=== PATIENT | female | born 1935 | race Two or more races ===

== ENCOUNTER 2017-12-09 06:50 | Day surgery (SDC) | payer OTHER ==
[2017-12-09 08:29] VITALS: BMI 29.1
[2017-12-09 12:53] VITALS: BP 131/74; PULSE 80; TEMP 98.2
== END 2017-12-09 12:55 | disposition home or self-care (01) ==
LOC: FASU 06:50
PROVIDERS: ATTEND Orthopaedic Surgery
PROC: 0LQ14ZZ Repair Right Shoulder Tendon, Percutaneous Endoscopic Approach (ICD-10-PCS; principal; 2017-12-09)
PROC: 0RNJ4ZZ Release Right Shoulder Joint, Percutaneous Endoscopic Approach (ICD-10-PCS; 2017-12-09)
PROC: 0PB94ZZ Excision of Right Clavicle, Percutaneous Endoscopic Approach (ICD-10-PCS; 2017-12-09)
PROC: 0RBJ4ZZ Excision of Right Shoulder Joint, Percutaneous Endoscopic Approach (ICD-10-PCS; 2017-12-09)
PROC: 0RNJ4ZZ Release Right Shoulder Joint, Percutaneous Endoscopic Approach (ICD-10-PCS; 2017-12-09)
DX: M75.101 Unspecified rotator cuff tear or rupture of right shoulder, not specified as traumatic (principal); M75.02 Adhesive capsulitis of left shoulder; M25.811 Other specified joint disorders, right shoulder; M75.41 Impingement syndrome of right shoulder; M19.011 Primary osteoarthritis, right shoulder; M65.811 Other synovitis and tenosynovitis, right shoulder
CPT/HCPCS: 88304-TC; 94760

== ENCOUNTER 2018-01-02 13:58 | Emergency (ER) | payer OTHER ==
[2018-01-02 14:25] VITALS: BP 146/85; PULSE 97; TEMP 98.3; BMI 31.2
--- NOTE | 2018-01-02 16:25 | PDOC ---
History of Present Illness - General Chief Complaint: Abrasion Stated Complaint: INJURY Time Seen by Provider: 01/02/18 15:42 History Source: Patient, Family (Daughter) Exam Limitations: No Limitations - History of Present Illness Initial Comments: 01/02/18 16:20 This is an 82-year-old woman with past medical history of hypertension, hyperlipidemia, arthritis and recent right rotator cuff repair who presents emergency Department with abrasion to left white status post trip and fall over steel steps at shop right. Patient states she caught her skin on the corner of the steel stairs which peeled back the top layer of her dermis. She applied a the adhesive bandage to the area prior to coming in and bleeding is now currently controlled. She reports she had a tetanus shot mutely prior to her surgery 2 months ago. Past History - Past Medical History Allergies/Adverse Reactions: Allergies Allergy/AdvReac Type Severity Reaction Status Date / Time shellfish derived Allergy Verified 01/02/18 14:21 contrast dye Allergy Uncoded 01/02/18 14:21 Home Medications: Ambulatory Orders Olmesartan Medoxomil [Benicar -] 40 mg PO DAILY 05/11/15 Amitriptyline HCl [Elavil -] 10 mg PO HS 12/07/17 Aspirin [ASA -] 81 mg PO DAILY 12/07/17 Gabapentin 300 mg PO BID 12/07/17 Hydrocodone/Acetaminophen [Hydrocodone-Acetamin 5-325 mg] 1 each PO ASDIR PRN Lansoprazole [Prevacid -] 15 mg PO DAILY 12/07/17 Hydrocodone/Acetaminophen [[place] 5-325 Tablet] 1 each PO Q6H PRN #28 tablet MDD 8 12/09/17 Anemia: No Asthma: No Cancer: Yes (basal cell of face) Cardiac Disorders: No CVA: No COPD: No CHF: No Dementia: No Diabetes: No GI Disorders: No Disorders: No HTN: Yes Hypercholesterolemia: Yes Liver Disease: No Seizures: No Thyroid Disease: No - Surgical History Abdominal Surgery: No Appendectomy: No Cardiac Surgery: No Cholecystectomy: Yes Lung Surgery: No Neurologic Surgery: No Orthopedic Surgery: Yes (Knee Replacement) - Suicide/Smoking/Psychosocial Hx Smoking Status: No Smoking History: Never smoked Have you smoked in the past 12 months: No Number of Cigarettes Smoked Daily: 0 Hx Alcohol Use: No Drug/Substance Use Hx: No Substance Use Type: None Hx Substance Use Treatment: No Review of Systems - Review of Systems Able to Perform ROS?: Yes Is the patient limited Citizen [place] proficient: No Constitutional: No: Symptoms Reported HEENTM: No: Symptoms Reported Respiratory: No: Symptoms reported Cardiac (ROS): No: Symptoms Reported ABD/GI: No: Symptoms Reported : No: Symptoms Reported Musculoskeletal: No: Symptoms Reported Integumentary: Yes: See HPI Neurological: No: Symptoms reported Endocrine: No: Symptoms Reported Hematologic/Lymphatic: No: Symptoms Reported *Physical Exam - Vital Signs Last Vital Signs Temp Pulse Resp BP Pulse Ox 98.3 F 97 H 19 146/85 97 01/02/18 14:21 01/02/18 14:21 01/02/18 14:21 01/02/18 14:21 01/02/18 14:21 - Physical Exam General Appearance: Yes: Appropriately Dressed. No: Apparent Distress Respiratory/Chest: positive: Lungs Clear, Normal Breath Sounds. negative: Respiratory Distress, Accessory Muscle Use Cardiovascular: positive: Regular Rhythm, Regular Rate. negative: Edema, Murmur Integumentary: positive: Normal Color, Dry, Warm, Other (Abrasion to the left anterolateral white) Neurologic: positive: Alert, Normal Response Medical Decision Making - Medical Decision Making 01/02/18 16:22 A/P: 82-year-old woman past medical history of hypertension, hyperlipidemia, arthritis and recent right rotator cuff repair who sustained abrasion to her white status post trip and fall Abrasion noted to left anterior lateral white No bony tenderness to white, ankle or knee 2+ DP pulses bilaterally Cranial nerves II through XII grossly intact Tetanus shot is up-to-date I'll discharge the patient home with wound care instructions. *DC/Admit/Observation/Transfer Diagnosis at time of Disposition: Abrasion - Discharge Dispostion Disposition: HOME Condition at time of disposition: Stable Admit: No - Referrals Referrals: Patricia Simeon MD [Primary Care Provider] - - Patient Instructions Additional Instructions: Continue apply adhesive bandages to wound until scab forms. Return to emergency department for any concerns. - Post Discharge Activity
== END 2018-01-02 16:29 | disposition home or self-care (01) ==
LOC: JERFT 13:58
DX: S80.812A Abrasion, left lower leg, initial encounter (principal); W10.8XXA Fall (on) (from) other stairs and steps, initial encounter; Y93.89 Activity, other specified; Y92.512 Supermarket, store or market as the place of occurrence of the external cause; Y99.8 Other external cause status; I10 Essential (primary) hypertension; E78.5 Hyperlipidemia, unspecified; M12.9 Arthropathy, unspecified; Z79.82 Long term (current) use of aspirin; Z85.828 Personal history of other malignant neoplasm of skin
CPT/HCPCS: 99281-25

== ENCOUNTER 2018-08-15 09:14 | Emergency (ER) | payer OTHER ==
[2018-08-15 09:38] VITALS: BMI 32.5
--- NOTE | 2018-08-15 09:39 | PDOC ---
History of Present Illness - General Chief Complaint: Pain, Acute Stated Complaint: PAIN, Time Seen by Provider: 08/15/18 09:38 - History of Present Illness Initial Comments: 82yo F with history of HTN, HLD, chronic back pain, postherpetic neuralgia presenting with RLE rash x 1 week and R-sided pain x 1 month. Patient saw her primary care physician, Dr. Simeon, one month ago for her side pain and was prescribed naprosyn. Patient says she feels minimal relief with this medicine. She did not take anything today for her pain. Patients rash is present on her right lower leg. About one year ago, patient sustained an abrasion which was slow to heal. She noticed in the past week that the area become red and painful. The area also bled from excoriation, but patient denies drainage of pus. Patient reports urinary frequency, but no dysuria or hematuria. She denies fevers, but endorses chills. No chest pain, shortness of breath, or abdominal pain. Past History - Past Medical History Allergies/Adverse Reactions: Allergies Allergy/AdvReac Type Severity Reaction Status Date / Time shellfish derived Allergy Verified 01/02/18 14:21 contrast dye Allergy Uncoded 01/02/18 14:21 Home Medications: Ambulatory Orders Olmesartan Medoxomil [Benicar -] 40 mg PO DAILY 05/11/15 Amitriptyline HCl [Elavil -] 10 mg PO HS 12/07/17 Aspirin [ASA -] 81 mg PO DAILY 12/07/17 Gabapentin 300 mg PO BID 12/07/17 Hydrocodone/Acetaminophen [Hydrocodone-Acetamin 5-325 mg] 1 each PO ASDIR PRN Lansoprazole [Prevacid -] 15 mg PO DAILY 12/07/17 Hydrocodone/Acetaminophen [[place] 5-325 Tablet] 1 each PO Q6H PRN #28 tablet MDD 8 12/09/17 Sulfamethoxazole/Trimethoprim [Bactrim Ds Tablet] 1 each PO BID #14 tablet 08/15 Anemia: No Asthma: No Cancer: Yes (basal cell of face) Cardiac Disorders: No CVA: No COPD: No CHF: No Dementia: No Diabetes: No GI Disorders: No Disorders: No HTN: Yes Hypercholesterolemia: Yes Liver Disease: No Seizures: No Thyroid Disease: No - Surgical History Abdominal Surgery: No Appendectomy: No Cardiac Surgery: No Cholecystectomy: Yes Lung Surgery: No Neurologic Surgery: No Orthopedic Surgery: Yes (Knee Replacement) - Suicide/Smoking/Psychosocial Hx Smoking Status: No Smoking History: Never smoked Have you smoked in the past 12 months: No Number of Cigarettes Smoked Daily: 0 Hx Alcohol Use: No Drug/Substance Use Hx: No Substance Use Type: None Hx Substance Use Treatment: No Review of Systems - Review of Systems Comments:: Constitutional: no fever, +chills Cardiovascular: no chest pain, no palpitations Respiratory: no cough, no shortness of breath Gastrointestinal: no abdominal pain, no nausea, no vomiting Genitourinary: no dysuria, +frequency Musculoskeletal: +side pain Skin: +rash, +itching Neurologic: no headache, no dizziness *Physical Exam - Vital Signs Last Vital Signs Temp Pulse Resp BP Pulse Ox 98.6 F 96 H 16 181/92 H 96 08/15/18 09:15 08/15/18 09:15 08/15/18 09:15 08/15/18 09:15 08/15/18 09:15 - Physical Exam Comments: General: Awake, alert, and fully oriented, in no acute distress Head: No signs of trauma Eyes: EOMI, sclera anicteric ENT: Moist mucus membranes Neck: Normal ROM, supple Lungs: Lungs clear, Normal breath sounds Cardio: Regular rhythm, S1 and S2 present Abdomen: Soft, nontender. No guarding, no rebound, no masses Extremities: Normal range of motion, Distal pulses present MSK: Tender to palpation overlying lateral aspect of rib 9 SKIN: Rash present on anterolateral aspect of RLE, measuring 3x3cm with 1cm central circular scab; no bleeding, discharge, or fluctuance Neurologic: Cranial nerves II through XII grossly intact. Normal speech Moderate Sedation - Procedure Monitoring Vital Signs: Procedure Monitoring Vital Signs Temperature 98.6 F 08/15/18 09:15 Pulse Rate 96 H 08/15/18 09:15 Respiratory Rate 16 08/15/18 09:15 Blood Pressure 181/92 H 08/15/18 09:15 O2 Sat by Pulse Oximetry (%) 96 08/15/18 09:15 ED Treatment Course - LABORATORY CBC & Chemistry Diagram: 08/15/18 10:29 08/15/18 12:23 Medical Decision Making - Medical Decision Making Patient not in bed. Belongings at bedside 08/15/18 09:45 82yo F with history of HTN, HLD, chronic back pain, postherpetic neuralgia presenting with RLE rash x 1 week and R-sided pain x 1 month. DDX includes but not limited to hematoma, cellulitis, adverse reaction to medicine, herpes zoster, MSK, rib fracture -Labs: no anemia or leukocytosis; UA with 2+ LE and 10 WBC -Bactrim given to treat for urine infection and possible early infection of RLE -Imaging: no acute pathology on CXR -Pain somewhat alleviated with 1g Ofirmev and lidocaine patch -Patient discharged with prescription for bactrim sent to pharmacy 08/15/18 10:21 *DC/Admit/Observation/Transfer Diagnosis at time of Disposition: Rib pain on right side, Urinary tract infection - Discharge Dispostion Disposition: HOME Condition at time of disposition: Stable - Prescriptions Prescriptions: Sulfamethoxazole/Trimethoprim [Bactrim Ds Tablet] 1 each PO BID #14 tablet - Referrals Referrals: Patricia Simeon MD [Primary Care Provider] - - Patient Instructions Additional Instructions: You came into the ED for rash and pain on your side. You have a urinary infection. Prescription was sent to your pharmacy to treat the rash and urine infection: Bactrim: 1 tablet twice a day for seven days You can take [id number] tylenol for the pain on your right side. You can also use [id number] lidocaine patches. Follow the instructions on the medication packaging. Follow-up with your primary care doctor this week to discuss this ED visit and to further evaluate your rash and side pain. RETURN to the ED if you experience: redness or hardness around the wound, pain or tenderness, a red streak, yellow or green discharge oozing from the wound, fever or chills, chest pain, or shortness of breath. If you think you are having an emergency, call for emergency medical services or present to the emergency department right away. ==== Entraste en el servicio de urgencias por erupcin y dolor en tu lado. Tiene layo infeccin urinaria. La receta se envi a bran farmacia para tratar la erupcin y la infeccin de orina: Bactrim: 1 tableta dos veces al da val siete roman Puede kenyon tylenol de venta latasha para el dolor en el lado derecho. Tambin puede usar parches de lidocana de venta latasha. Siga las instrucciones en el envase del medicamento. Dusty un seguimiento con bran mdico de atencin primaria esta semana para hablar sobre esta visita a la valeriano de urgencias y para evaluar ms a fondo bran erupcin y dolor en el costado. REGRESE al servicio de urgencias si experimenta: enrojecimiento o dureza alrededor de la herida, dolor o sensibilidad, alyo racha yunior, secrecin amarilla o shaan que sale de la herida, fiebre o escalofros, dolor en el pecho o falta de aire. Si sina que tiene layo emergencia, llame para solicitar servicios mdicos de emergencia o presente al departamento de emergencias de inmediato. - Post Discharge Activity
[2018-08-15] MEDS ORDERED: ACETAMINOPHEN 1000 MG/100 ML VIAL (NON FORMULARY) IVPB ONE (10:20)
[2018-08-15] MEDS ORDERED: ACETAMINOPHEN INJECTION 100 ML IVPB ONE (10:24)
--- NOTE | 2018-08-15 10:36 | PDOC ---
Attending Attestation - Resident Resident Name: Rich Blackwellth - ED Attending Attestation I have performed the following: I have examined & evaluated the patient, The case was reviewed & discussed with the resident, I agree w/resident's findings & plan, Exceptions are as noted - HPI HPI: 08/15/18 10:30 82-year-old female history of hypertension here today complaining of 1 month of right-sided lower rib upper flank pain. Patient states pain is worse with standing and sitting denies any shortness of breath no cough no fevers chills denies any urinary complaints except states that she is urinating more frequently no trauma no history of falls she is also complaining of a left lower leg reddened area and sore as well as pain. Patient states she had a skin wound there one year ago from an abrasion recently she was scratching the area because it was itching suddenly got some underlying redness did get an open sore and recently has been having pain in the area again no fevers no chills no swelling has been applying topical bacitracin twice daily she has had this wound in the left lower calf for 1 week - Physicial Exam PE: 08/15/18 10:36 Awake alert no acute distress lungs are clear bilaterally heart is regular without any murmurs rubs or gallops abdomen soft nontender skin is warm and dry left lateral calf has a small circular scabbed over but half a centimeter by half a centimeter. There is underlying purpura or small hematoma no fluctuance no urinary erythema otherwise minimal warmth distally the patient has 2+ DP PT pulses the right lateral ribs are focally tender to palpation no crepitus no step-off no flank or CVA tenderness - Medical Decision Making 08/15/18 10:37 Differential diagnosis includes muscle skeletal strain of the right thoracic muscles chest wall pain, underlying rib fracture, infection such as pneumonia or effusion . For the left leg the patient has concerns for possible early infection will continue bacitracin and possible oral antibiotic in addition we' ll check renal function to rule out any renal cause of her pain in addition to LFTs and a CBC UA to rule out pyelonephritis or UTI chest x-ray to rule out pneumonia 08/15/18 13:59 pt with mild positive ua, will treat with bactrim for both skin infection and uti. labs noted hypoglycemia and low calciu, finger stick in 80's will repeat chemistry. repeat chem with normal calcium and glucose ziggy lab error. dc home.
[2018-08-15 10:37] LABS: BASO % 0.7 % (0-2.0); EOS % 2.6 % (0-4.5); HEMATOCRIT 36.8 % (32.4-45.2); HEMOGLOBIN 12.7 GM/dL (10.7-15.3); LYMPH % 19.5 % (8-40); MCH 31.8 pg (25.7-33.7); MCHC 34.5 g/dl (32.0-36.0); MEAN CELL VOLUME 92.1 fl (80-96); MEAN PLT VOLUME 8.5 fl (7.5-11.1); MONO % 7.4 % (3.8-10.2); NEUT % 69.8 % (42.8-82.8); PLATELET COUNT 172 K/MM3 (134-434); RBC 3.99 M/mm3 (3.60-5.2); WHITE BLOOD COUNT 5.9 K/mm3 (4.0-10.0)
[2018-08-15 10:38] LABS: URINE APPEARANCE CLEAR; URINE BILIRUBIN NEGATIVE (<2.0 mg/dL); URINE COLOR LTYELLOW; URINE GLUCOSE (UA) NEGATIVE (NEGATIVE); URINE KETONE NEGATIVE (NEGATIVE); URINE LEUK ESTERASE 2+ (NEGATIVE); URINE NITRITE NEGATIVE (NEGATIVE); URINE PROTEIN NEGATIVE (NEGATIVE); URINE UROBILINOGEN NEGATIVE mg/dL (0.2-1.0)
[2018-08-15 10:43] LABS: URINE BACTERIA RARE /hpf (NONE SEEN); URINE HYALINE CAST 1 /lpf; URINE MUCUS RARE
[2018-08-15 11:36] LABS: ALBUMIN 3.3 g/dl (3.4-5.0); ALK PHOS 52 U/L (45-117); ANION GAP 18 MMOL/L (8-16); BILIRUBIN,TOTAL 0.6 mg/dL (0.2-1); BLOOD UREA NITROGEN 27 mg/dL (7-18); CHLORIDE 110 mmol/L (98-107); CO2 15 mmol/L (21-32); CREATININE 0.6 mg/dL (0.55-1.3); SGOT/AST 43 U/L (15-37); SGPT/ALT 29 U/L (13-61); SODIUM 142 mmol/L (136-145); TOT PROT 6.4 g/dl (6.4-8.2)
[2018-08-15] MEDS ORDERED: VALSARTAN 40 MG TABLET (FP) PO ONE (11:53)
[2018-08-15 11:56] LABS: CALCIUM < 5.1 mg/dL (8.5-10.1); GLUCOSE,RANDOM 34 mg/dL (74-106)
[2018-08-15] MEDS ORDERED: VALSARTAN 80 MG TABLET (UD) ONE (12:01)
[2018-08-15] MEDS ORDERED: HEMOQUE TEST 1 EACH EACH ONE (12:09)
[2018-08-15] MEDS ORDERED: SULFAMETHOXAZOLE/TRIMETHOPRIM 800MG/160MG D.S. TABLET PO ONE (12:09)
[2018-08-15 12:49] LABS: ANION GAP 4 MMOL/L (8-16); BLOOD UREA NITROGEN 25 mg/dL (7-18); CALCIUM 8.2 mg/dL (8.5-10.1); CHLORIDE 108 mmol/L (98-107); CO2 29 mmol/L (21-32); CREATININE 0.6 mg/dL (0.55-1.3); GLUCOSE,RANDOM 89 mg/dL (74-106); POTASSIUM 3.7 mmol/L (3.5-5.1); SODIUM 141 mmol/L (136-145)
[2018-08-15] MEDS ORDERED: LIDOCAINE 5% TOPICAL PATCH TP ONE (13:08)
[2018-08-15] MEDS ORDERED: LIDOCAINE 5% TOPICAL PATCH ONE (13:13)
[2018-08-15 13:59] VITALS: BP 120/79; PULSE 79; TEMP 98.5
[2018-08-15] MEDS ORDERED: LIDOCAINE PATCH REMOVAL MC SCH (22:00)
== END 2018-08-15 14:30 | disposition home or self-care (01) ==
LOC: JER 09:14
PROC: 3E033NZ Introduction of Analgesics, Hypnotics, Sedatives into Peripheral Vein, Percutaneous Approach (ICD-10-PCS; principal; 2018-08-15)
DX: R07.81 Pleurodynia (principal); N39.0 Urinary tract infection, site not specified; I10 Essential (primary) hypertension; E78.5 Hyperlipidemia, unspecified; G89.29 Other chronic pain; B02.29 Other postherpetic nervous system involvement
CPT/HCPCS: 36415; 71046-TC-FY; 80048; 80053; 81003; 81015; 82962; 85025; 87086; 99283-25; J0131

== ENCOUNTER 2019-01-15 09:16 | Emergency (ER) | payer OTHER ==
[2019-01-15 09:33] VITALS: BP 166/70; PULSE 90; TEMP 98.3; BMI 32.2
--- NOTE | 2019-01-15 10:13 | PDOC ---
History of Present Illness - History of Present Illness Occurred: reports: other Lower Extremity Pain Location: bilateral: leg <AlmaKenneth - Last Filed: 01/15/19 14:38> <Martha Bailon - Last Filed: 01/16/19 15:00> - General Chief Complaint: Pain Stated Complaint: RT LEG PAIN/SWOLLEN Time Seen by Provider: 01/15/19 10:08 Past History - Past Medical History Anemia: No Asthma: No Cancer: Yes (basal cell of face) Cardiac Disorders: No CVA: No COPD: No CHF: No Dementia: No Diabetes: No GI Disorders: No Disorders: No HTN: Yes Hypercholesterolemia: Yes Liver Disease: No Seizures: No Thyroid Disease: No - Surgical History Abdominal Surgery: No Appendectomy: No Cardiac Surgery: No Cholecystectomy: Yes Lung Surgery: No Neurologic Surgery: No Orthopedic Surgery: Yes (Knee Replacement) - Suicide/Smoking/Psychosocial Hx Smoking Status: No Smoking History: Never smoked Have you smoked in the past 12 months: No Number of Cigarettes Smoked Daily: 0 Hx Alcohol Use: No Drug/Substance Use Hx: No Substance Use Type: None Hx Substance Use Treatment: No <[place]apeakeKenneth - Last Filed: 01/15/19 14:38> <Martha Bailon - Last Filed: 01/16/19 15:00> - Past Medical History Allergies/Adverse Reactions: Allergies Allergy/AdvReac Type Severity Reaction Status Date / Time shellfish derived Allergy Verified 01/15/19 09:27 contrast dye Allergy Uncoded 01/15/19 09:27 Home Medications: Ambulatory Orders Aspirin Coated [Ecotrin -] 81 mg PO DAILY 01/15/19 Losartan Potassium [Cozaar] 100 mg PO DAILY 01/15/19 Rosuvastatin Calcium [Crestor] 10 mg PO HS 01/15/19 Review of Systems - Review of Systems Constitutional: No: Chills, Fever Respiratory: No: Shortness of Breath Cardiac (ROS): No: Chest Pain, Palpitations <Kenneth Marquez - Last Filed: 01/15/19 14:38> *Physical Exam - Vital Signs Last Vital Signs Temp Pulse Resp BP Pulse Ox 98.3 F 90 20 166/70 95 01/15/19 09:31 01/15/19 09:31 01/15/19 09:31 01/15/19 09:31 01/15/19 09:31 - Physical Exam General Appearance: Yes: Appropriately Dressed. No: Apparent Distress Neck: positive: Supple Respiratory/Chest: positive: Lungs Clear, Normal Breath Sounds. negative: Respiratory Distress Cardiovascular: positive: Regular Rate, S1, S2 Musculoskeletal: positive: Other (hyperpigmented white to b/l LE w/ no sig swelling, no erythema, pedal pulses intact) Integumentary: positive: Dry, Warm Neurologic: positive: Fully Oriented, Alert, Normal Mood/Affect <Kenneth Marquez - Last Filed: 01/15/19 14:38> - Vital Signs Last Vital Signs Temp Pulse Resp BP Pulse Ox 98.3 F 90 20 166/70 95 01/15/19 09:31 01/15/19 09:31 01/15/19 09:31 01/15/19 09:31 01/15/19 09:31 <Martha Bailon - Last Filed: 01/16/19 15:00> ED Treatment Course - LABORATORY CBC & Chemistry Diagram: 01/15/19 10:45 01/15/19 10:45 <Kenneth Marquez - Last Filed: 01/15/19 14:38> - LABORATORY CBC & Chemistry Diagram: 01/15/19 10:45 01/15/19 10:45 <Martha Bailon - Last Filed: 01/16/19 15:00> Medical Decision Making - Medical Decision Making 01/15/19 10:54 83 yo F, h/o HTN, HLD, here w/ b/l LE pain and swelling x 1 week. Has had same before but worse this time. No f/c, SOB, CP or palpitations See exam B/l LE pain/swelling Recurrent Exam only remarkable for e/o venous stasis b/l Of note US in 2015 demonstrated significant reflux to b/l GSV and SSV per records -labs/US -anticipate dc w/ PMD and vasc f/u 01/15/19 14:24 Labs unremarkable, US neg for DVT. Dc w/ PMD and vascular f/u <Kenneth Marquez - Last Filed: 01/15/19 14:38> - Medical Decision Making The patient was seen and evaluated in conjunction with midlevel provider under my direct supervision, ancillary studies were reviewed. I agree with the plan as outlined OLESYA Marquez. HPI, workup/dispo as outlined. VS reviewed, wnl. 01/15/19 11:00 <Martha Bailon - Last Filed: 01/16/19 15:00> *DC/Admit/Observation/Transfer <Kenneth Marquez - Last Filed: 01/15/19 14:38> <Martha Bailon - Last Filed: 01/16/19 15:00> Diagnosis at time of Disposition: Leg pain, bilateral - Discharge Dispostion Disposition: HOME Condition at time of disposition: Good - Referrals Referrals: Gisela Schulte MD [Primary Care Provider] - Amarjit Laurent DO [Staff Physician] - - Patient Instructions Printed Discharge Instructions: Chronic Venous Insufficiency Additional Instructions: Tu trabajo de laboratorio y la ecografa fueron normales hoy. La causa de sandeep sntomas pueden ser venas defectuosas. Por favor calos un seguimiento con bran PMD y tambin con el Dr. Laurent de vascular cuyo nmero se incluye en allan documento de jeannie Print Language: ICELANDIC
[2019-01-15 11:13] LABS: BASO % 0.8 % (0-2.0); EOS % 3.3 % (0-4.5); HEMATOCRIT 40.4 % (32.4-45.2); HEMOGLOBIN 13.1 GM/dL (10.7-15.3); LYMPH % 26.4 % (8-40); MCH 30.3 pg (25.7-33.7); MCHC 32.5 g/dl (32.0-36.0); MEAN CELL VOLUME 93.1 fl (80-96); MEAN PLT VOLUME 7.9 fl (7.5-11.1); MONO % 6.3 % (3.8-10.2); NEUT % 63.2 % (42.8-82.8); PLATELET COUNT 200 K/MM3 (134-434); RBC 4.34 M/mm3 (3.60-5.2); RDW 14.8 % (11.6-15.6); WHITE BLOOD COUNT 4.7 K/mm3 (4.0-10.0)
[2019-01-15 11:23] LABS: ALBUMIN 3.7 g/dl (3.4-5.0); BILIRUBIN,TOTAL 0.4 mg/dL (0.2-1); CALCIUM 8.5 mg/dL (8.5-10.1); CREATININE 0.6 mg/dL (0.55-1.3); TOT PROT 6.6 g/dl (6.4-8.2)
[2019-01-15 11:25] LABS: EPI CELLS 4.3 /HPF (0-5/HPF); PH,URINE 5.5 (5.0-8.0); URINE APPEARANCE CLEAR; URINE BACTERIA 26.2 /hpf (NEGATIVE); URINE BILIRUBIN NEGATIVE (NEGATIVE); URINE CASTS 4 /lpf (0-8); URINE COLOR YELLOW; URINE GLUCOSE (UA) NEGATIVE (NEGATIVE); URINE KETONE NEGATIVE (NEGATIVE); URINE LEUK ESTERASE 1+ (NEGATIVE); URINE NITRITE NEGATIVE (NEGATIVE); URINE PROTEIN NEGATIVE (NEGATIVE); URINE RBC 3 /hpf (0-4); URINE UROBILINOGEN 0.2 mg/dL (0.2-1.0); URINE WBC 9 /hpf (0-5)
== END 2019-01-15 14:00 | disposition home or self-care (01) ==
LOC: JER 09:16
DX: I87.8 Other specified disorders of veins (principal); I87.2 Venous insufficiency (chronic) (peripheral); I10 Essential (primary) hypertension; E78.00 Pure hypercholesterolemia, unspecified; Z85.828 Personal history of other malignant neoplasm of skin
CPT/HCPCS: 36415; 80053; 81003; 85025; 93970-TC; 99282-25

== ENCOUNTER 2019-01-31 10:13 | Emergency (ER) | payer OTHER | END 2019-01-31 15:04 | disposition home or self-care (01) | LOC: JER 10:13 ==

== ENCOUNTER 2019-02-05 09:20 | Emergency (ER) | payer OTHER | END 2019-02-05 12:44 | disposition home or self-care (01) | LOC: JERFT 09:20 ==

== ENCOUNTER 2019-10-23 15:59 | Emergency (ER) | payer OTHER ==
[2019-10-23 16:16] VITALS: BMI 34.2
--- NOTE | 2019-10-23 16:17 | PDOC ---
Rapid Medical Evaluation Time Seen by Provider: 10/23/19 16:13 Medical Evaluation: Allergies Allergy/AdvReac Type Severity Reaction Status Date / Time shellfish derived Allergy Verified 02/05/19 09:25 contrast dye Allergy Uncoded 02/05/19 09:25 10/23/19 16:14 Pt c/o: high BP at dr office, on losartan and no dose adjustment recently, mild chest tightness Pt on brief exam: bp 177/100, lcta, 103 pt ordered for: cardiac w/u pt to proceed to the ED Discharge Disposition - Diagnosis High blood pressure, Chest pain - Referrals - Patient Instructions - Post Discharge Activity
[2019-10-23 16:48] LABS: BASO % 0.8 % (0-2.0); EOS % 2.6 % (0-4.5); HEMATOCRIT 39.7 % (32.4-45.2); HEMOGLOBIN 13.1 GM/dL (10.7-15.3); LYMPH % 25.4 % (8-40); MCH 30.5 pg (25.7-33.7); MCHC 32.9 g/dl (32.0-36.0); MEAN CELL VOLUME 92.8 fl (80-96); NEUT % 64.2 % (42.8-82.8); PLATELET COUNT 179 K/MM3 (134-434); RBC 4.28 M/mm3 (3.60-5.2); RDW 15.8 % (11.6-15.6); WHITE BLOOD COUNT 6.3 K/mm3 (4.0-10.0)
[2019-10-23 16:53] LABS: EPI CELLS 5.3 /HPF (0-5/HPF); HYALINE CASTS 2 /lpf (0-8); PH,URINE 6.5 (5.0-8.0); URINE APPEARANCE CLEAR; URINE BACTERIA 6.7 /hpf (NEGATIVE); URINE BILIRUBIN NEGATIVE (NEGATIVE); URINE COLOR YELLOW; URINE GLUCOSE (UA) NEGATIVE (NEGATIVE); URINE KETONE NEGATIVE (NEGATIVE); URINE LEUK ESTERASE NEGATIVE (NEGATIVE); URINE NITRITE NEGATIVE (NEGATIVE); URINE PROTEIN 3+ (NEGATIVE); URINE RBC 3 /hpf (0-4); URINE UROBILINOGEN 0.2 mg/dL (0.2-1.0); URINE WBC 4 /hpf (0-5)
--- NOTE | 2019-10-23 16:59 | PDOC ---
History of Present Illness - General Chief Complaint: Blood Pressure Problem Stated Complaint: HIGH BLOOD PRESSURE Time Seen by Provider: 10/23/19 16:13 History Source: Patient Exam Limitations: No Limitations - History of Present Illness Initial Comments: 10/23/19 16:55 Pt is an 83 y/o female who presents to the ED with complaint of palpitations that she had last night. The patient did not make her family member aware of her palpitations and she states they only lasted a short time. Today, the patient went to have blood drawn and was told that her cheeks were red and she had palpitations again for a short period of time. The patient's family member brought her to the ED for evaluation. The patient states that she feels normal now. She denies any cp, sob, visual changes, palpitations, jaw pain or back pain. She has a history of HTN, HLD, osteoporosis, arthritis. She denies any complaints at this time. Past History - Past Medical History Allergies/Adverse Reactions: Allergies Allergy/AdvReac Type Severity Reaction Status Date / Time shellfish derived Allergy Verified 10/23/19 16:17 contrast dye Allergy Uncoded 10/23/19 16:17 Home Medications: Ambulatory Orders Diclofenac Sodium [Voltaren] 2 gm TP TID PRN #3 tube 05/01/19 Aspirin Coated [Ecotrin -] 81 mg PO DAILY #30 tablet.ec 07/19/19 Losartan Potassium [Cozaar] 100 mg PO DAILY #14 tablet 07/19/19 Rosuvastatin Calcium [Crestor] 10 mg PO HS #14 tablet 07/19/19 Amitriptyline HCl 25 mg PO HS #30 tablet 09/19/19 Ergocalciferol (Vitamin D2) [Vitamin D2] 50,000 unit PO Q7D #4 capsule 09/19/19 Ciclopirox Olamine [Ciclopirox] 15 gm TP DAILY 10/23/19 Denosumab [Prolia] 60 mg SQ DAILY 10/23/19 Diclofenac Sodium [Voltaren] 100 gm TP PRN PRN 10/23/19 Duloxetine HCl 30 mg PO DAILY 10/23/19 Meloxicam 10 mg PO DAILY 10/23/19 Mupirocin Ointment [Bactroban] 1 applic TP TID 10/23/19 Anemia: No Asthma: No Cancer: Yes (basal cell of face (right forehead) ) Cardiac Disorders: No CVA: No COPD: No CHF: No Dementia: No Diabetes: No GI Disorders: No Disorders: No (hx UTI) HTN: Yes Hypercholesterolemia: Yes Liver Disease: No Seizures: No Thyroid Disease: No - Surgical History Abdominal Surgery: No Appendectomy: No Cardiac Surgery: No Cholecystectomy: Yes Lung Surgery: No Neurologic Surgery: No Orthopedic Surgery: Yes (right Knee Replacement 2012; right shoulder arthroscopy 2019) - Immunization History Immunization Up to Date: No - Psycho Social/Smoking Cessation Hx Smoking Status: No Smoking History: Never smoked Have you smoked in the past 12 months: No Number of Cigarettes Smoked Daily: 0 Information on smoking cessation initiated: No Hx Alcohol Use: No Drug/Substance Use Hx: No Substance Use Type: None Hx Substance Use Treatment: No Review of Systems - Review of Systems Constitutional: No: Chills, Fever, Loss of Appetite, Malaise, Weakness HEENTM: No: Blurred Vision, Double Vision, Tinnitus, Nose Bleeding Respiratory: No: Cough, Orthopnea, Shortness of Breath, Wheezing Cardiac (ROS): Yes: Palpitations. No: Chest Pain, Edema, Irregular Heart Rate, Lightheadedness, Syncope, Chest Tightness ABD/GI: No: Constipated, Diarrhea, Nausea, Vomiting, Abdominal cramping Musculoskeletal: No: Back Pain, Neck Pain Integumentary: Yes: Flushing. No: Change in Color Neurological: No: Headache, Numbness, Tingling, Unsteady Gait, Dizziness *Physical Exam - Vital Signs Last Vital Signs Temp Pulse Resp BP Pulse Ox 98.4 F 103 H 19 177/100 H 95 10/23/19 16:14 10/23/19 16:14 10/23/19 16:14 10/23/19 16:14 10/23/19 16:14 - Physical Exam General Appearance: Yes: Nourished, Appropriately Dressed, Other (Pt began crying during exam). No: Apparent Distress HEENT: positive: EOMI, Hearing Grossly Normal. negative: Pale Conjunctivae, Muffled/Hoarse voice Neck: positive: Supple. negative: Rigid, Decreased range of motion Respiratory/Chest: positive: Lungs Clear, Normal Breath Sounds. negative: Chest Tender, Respiratory Distress, Accessory Muscle Use, Decreased Breath Sounds, Rales, Rhonchi, Wheezing Cardiovascular: positive: Regular Rhythm, Regular Rate, S1, S2, Edema (1+ pitting edema b/l LE). negative: Tachycardia Gastrointestinal/Abdominal: positive: Normal Bowel Sounds. 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 NML intact, Fully Oriented, Alert, Normal Mood/ Affect, Normal Response, Motor Strength 12/31 ED Treatment Course - LABORATORY CBC & Chemistry Diagram: 10/23/19 16:28 10/23/19 16:28 - ADDITIONAL ORDERS Additional order review: Laboratory Results 10/23/19 16:28 Urine Color Yellow Urine Appearance Clear Urine pH 6.5 Ur Specific [place] 1.018 Urine Protein 3+ H Urine Glucose (UA) Negative Urine Ketones Negative Urine Blood Negative Urine Nitrite Negative Urine Bilirubin Negative Urine Urobilinogen 0.2 Ur Leukocyte Esterase Negative Urine WBC (Auto) 4 Urine RBC (Auto) 3 Urine Casts (Auto) 2 U Epithel Cells (Auto) 5.3 Urine Bacteria (Auto) 6.7 Medical Decision Making - Medical Decision Making 10/23/19 17:03 Assessment: Pt is an 83 y/o female with palpitations last night and flushing cheeks today. Family member was concerned and brought her to the ED. The patient is currently asymptomatic. Plan: -labs ordered -EKG done in triage -CXR ordered -Will reassess EKG done @ 16:22 NSR @ [address]/T wave abnormalities 10/23/19 17:54 Pt and her family have been made aware that the labs are all within normal limits. They pt's BP on repeat was 159/84 and she is feeling well. She has been made aware to follow up with her primary doctor within 2 days for repeat evaluation. The findings on the chest xray, appear unchanged from 08/15 after review of both. The patient is stable for discharge and understands and agrees with this treatment and plan. 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 Previous xray from 2018 was reviewed and it was noticable at that time as well. Please follow up. Labs including cardiac work up and EKG were normal. ) - Patient Discharge Instructions Patient Printed Discharge Instructions: DI for High Blood Pressure Additional Instructions: Be sure to take all your medications as prescribed. Follow up with your primary doctor within 2 days for repeat evaluation. Get plenty of rest and drink plenty of fluids. Print Language: OCCITAN - Post Discharge Activity
[2019-10-23 17:05] LABS: INR 0.92 (0.83-1.09); PROTHROMBIN TIME (PATIENT) 10.8 SEC (9.7-13.0)
[2019-10-23 17:19] VITALS: BP 159/84; PULSE 89; TEMP 97.8
[2019-10-23 17:30] LABS: ALBUMIN 3.6 g/dl (3.4-5.0); ALK PHOS 68 U/L (45-117); ANION GAP 7 MMOL/L (8-16); BILIRUBIN,TOTAL 0.4 mg/dL (0.2-1); BLOOD UREA NITROGEN 21.1 mg/dL (7-18); CALCIUM 9.8 mg/dL (8.5-10.1); CHLORIDE 110 mmol/L (98-107); CO2 28 mmol/L (21-32); CREATININE 0.6 mg/dL (0.55-1.3); GLUCOSE,RANDOM 95 mg/dL (74-106); SGOT/AST 25 U/L (15-37); SGPT/ALT 29 U/L (13-61); SODIUM 144 mmol/L (136-145); TOT PROT 6.8 g/dl (6.4-8.2)
--- NOTE | 2019-10-24 16:44 | EKG ---
Test Reason : Blood Pressure : / mmHG Vent. Rate : 099 BPM Atrial Rate : 099 BPM P-R Int : 136 ms QRS Dur : 082 ms QT Int : 366 ms P-R-T Axes : 050 -04 064 degrees QTc Int : 469 ms NORMAL SINUS RHYTHM POSSIBLE LEFT ATRIAL ENLARGEMENT BORDERLINE ECG Confirmed by MD NELIDA, ARIEL ([id number]) on 10/24/2019 4:44:26 PM Referred By: Confirmed By:ARIEL KRAUSE MD
== END 2019-10-23 18:12 | disposition home or self-care (01) ==
LOC: JER 15:59
DX: R00.2 Palpitations (principal); I10 Essential (primary) hypertension; E78.00 Pure hypercholesterolemia, unspecified; Z85.828 Personal history of other malignant neoplasm of skin; Z96.651 Presence of right artificial knee joint
CPT/HCPCS: 36415; 71045-TC-FY; 80053; 81003; 82550; 84484; 85025; 85610; 93005; 93010; 99285-25

== ENCOUNTER 2019-11-22 13:34 | Inpatient (IN) | payer OTHER ==
--- NOTE | 2019-11-22 14:29 | PDOC ---
History of Present Illness - General Stated Complaint: COUGH/BODY ACHES Time Seen by Provider: 11/22/19 14:04 History Source: Patient Exam Limitations: No Limitations - History of Present Illness Initial Comments: 84 yo F with a hx of HTN, HLD, osteoporosis, and arthritis presents to the emergency with generalized body aches, non productive cough, and chills. Per the patient, she states she has had these symptoms for the past 3 days. She endorses recent sick contact, which was her sister who had pneumonia 2 weeks ago. The patient states she took tylenol at 9 am this morning, approximately 4-5 hours prior to presentation. The patient denies recent travel. Per the patient, she denies the following: headaches, nausea, vomiting, chest pain, SOB, abdominal pain, dysuria, hematuria, and leg pain/swelling. Past History - Past Medical History Allergies/Adverse Reactions: Allergies Allergy/AdvReac Type Severity Reaction Status Date / Time shellfish derived Allergy Verified 11/22/19 14:53 contrast dye Allergy Uncoded 11/22/19 14:53 Home Medications: Ambulatory Orders Aspirin Coated [Ecotrin -] 81 mg PO DAILY #30 tablet.ec 07/19/19 Losartan Potassium [Cozaar] 100 mg PO DAILY #14 tablet 07/19/19 Rosuvastatin Calcium [Crestor] 10 mg PO HS #14 tablet 07/19/19 Amitriptyline HCl 25 mg PO HS #30 tablet 09/19/19 Ergocalciferol (Vitamin D2) [Vitamin D2] 50,000 unit PO Q7D #4 capsule 09/19/19 Mupirocin Ointment [Bactroban 2% Ointment -] 1 applic TP TID 10/23/19 Azithromycin 250 mg PO DAILY 4 Days #4 tablet 11/23/19 Mirtazapine 15 mg PO DAILY 11/23/19 Anemia: No Asthma: No Cancer: Yes (basal cell of face (right forehead) ) Cardiac Disorders: No CVA: No COPD: No CHF: No Dementia: No Diabetes: No GI Disorders: No Disorders: No (hx UTI) HTN: Yes Hypercholesterolemia: Yes Liver Disease: No Seizures: No Thyroid Disease: No - Surgical History Abdominal Surgery: No Appendectomy: No Cardiac Surgery: No Cholecystectomy: Yes Lung Surgery: No Neurologic Surgery: No Orthopedic Surgery: Yes (right Knee Replacement 2011; right shoulder arthroscopy 2019) - Immunization History Immunization Up to Date: No - Psycho Social/Smoking Cessation Hx Smoking Status: No Smoking History: Never smoked Have you smoked in the past 12 months: No Number of Cigarettes Smoked Daily: 0 Hx Alcohol Use: No Drug/Substance Use Hx: No Substance Use Type: None Hx Substance Use Treatment: No Review of Systems - Review of Systems Able to Perform ROS?: Yes Is the patient limited Omani proficient: No Constitutional: Yes: Chills, Weakness. No: Diaphoresis, Fever HEENTM: No: Eye Pain, Ear Pain, Nose Pain, Throat Pain Respiratory: Yes: Cough. No: Shortness of Breath, SOB with Exertion, Productive cough, Hemoptysis ABD/GI: No: Constipated, Diarrhea, Nausea, Rectal Bleeding, Vomiting, Tarry Stools : No: Burning, Dysuria, Hematuria, Incontinence Musculoskeletal: Yes: Muscle Pain (body aches generalized). No: Back Pain, Joint Pain, Neck Pain Integumentary: No: Bruising, Erythema, Rash Neurological: No: Headache, Numbness, Tingling, Tremors Endocrine: No: Unexplained Weight Gain Hematologic/Lymphatic: No: Anemia *Physical Exam - Physical Exam General Appearance: Yes: Nourished, Appropriately Dressed. No: Apparent Distress, Intoxicated HEENT: positive: EOMI, GRIFFIN, Normal Voice, Symmetrical, Pharynx Normal. neg ative: Pale Conjunctivae, Scleral Icterus (R), Scleral Icterus (L), Muffled/Hoarse voice, Pharyngeal Erythema, Tonsillar Exudate, Tonsillar Erythema, Nasal Congestion, Rhinorrhea, Sinus Tenderness Neck: positive: Trachea midline, Supple. negative: Tender, Lymphadenopathy (R), Lymphadenopathy (L) Respiratory/Chest: positive: Wheezing (base of left lung). negative: Chest Tender, Lungs Clear, Normal Breath Sounds, Respiratory Distress, Accessory M uscle Use Cardiovascular: positive: Regular Rhythm, Regular Rate, S1, S2. negative: Systolic Murmur Gastrointestinal/Abdominal: positive: Normal Bowel Sounds, Flat, Soft. negative: Tender, Distended, Guarding, Rebound Lymphatic: negative: Adenopathy Musculoskeletal: positive: Normal Inspection. negative: CVA Tenderness, Vertebral Tenderness Extremity: positive: Normal Capillary Refill, Normal Inspection, Normal Range of Motion. 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 Initial vitals: Initial Vital Signs Pulse Ox 91 L 11/22/19 14:50 Work up: patient presents to the emergency department with URI like symptoms with borderline temperature (with recent use of an anti-pyretic) and initial hypoxia reading that was sustained while on room air while evaluating the patient who was at rest. With 2 L of NC, the patient's O2 improved to normal levels. Per the patient, she lives with her son who frequents in and out of the house during the quarantine period due to work. The patient will have septic work up. Will obtain CXR and labs. Laboratory Tests 11/22/19 11/22/19 11/22/19 14:30 14:30 14:30 WBC 3.0 L RBC 4.59 Hgb 14.0 Hct 42.4 MCV 92.5 MCH 30.5 MCHC 33.0 RDW 15.6 Plt Count 141 D MPV 7.8 Absolute Neuts (auto) 1.7 Neutrophils % 56.1 Lymphocytes % 26.2 Monocytes % 16.5 H D Eosinophils % 0.4 D Basophils % 0.8 Nucleated RBC % 0 PT with INR 11.10 INR 0.94 VBG pH POC VBG pCO2 POC VBG pO2 VBG HCO3 VBG O2 Sat (Lorri) VBG Base Excess Sodium 139 Potassium 4.1 Chloride 103 Carbon Dioxide 29 Anion Gap 7 L BUN 14.6 Creatinine 0.7 Est GFR (CKD-EPI)AfAm 92.21 Est GFR (CKD-EPI)NonAf 79.56 Random Glucose 94 Lactic Acid Calcium 9.1 Magnesium 1.9 Ferritin Total Bilirubin 0.3 AST 29 ALT 32 Alkaline Phosphatase 69 LD Total Creatine Kinase 40 Troponin I < 0.02 B-Natriuretic Peptide 127.6 Total Protein 6.9 Albumin 3.6 COVID-19 PCR COVID-19 (AYANNA) Influenza A (Rapid) Influenza B (Rapid) RSV Rapid 11/22/19 11/22/19 11/22/19 14:30 14:30 14:30 WBC RBC Hgb Hct MCV MCH MCHC RDW Plt Count MPV Absolute Neuts (auto) Neutrophils % Lymphocytes % Monocytes % Eosinophils % Basophils % Nucleated RBC % PT with INR INR VBG pH POC VBG pCO2 POC VBG pO2 VBG HCO3 VBG O2 Sat (Lorri) VBG Base Excess Sodium Potassium Chloride Carbon Dioxide Anion Gap BUN Creatinine Est GFR (CKD-EPI)AfAm Est GFR (CKD-EPI)NonAf Random Glucose Lactic Acid 1.4 Calcium Magnesium Ferritin 76.0 Total Bilirubin AST ALT Alkaline Phosphatase LD Total 195 Creatine Kinase Troponin I B-Natriuretic Peptide Total Protein Albumin COVID-19 PCR COVID-19 (AYANNA) Influenza A (Rapid) Negative Influenza B (Rapid) Negative RSV Rapid 11/22/19 11/22/19 11/22/19 14:30 14:30 14:30 WBC RBC Hgb Hct MCV MCH MCHC RDW Plt Count MPV Absolute Neuts (auto) Neutrophils % Lymphocytes % Monocytes % Eosinophils % Basophils % Nucleated RBC % PT with INR INR VBG pH 7.32 POC VBG pCO2 61.2 H POC VBG pO2 < 49 H VBG HCO3 30.3 H VBG O2 Sat (Lorri) 60.7 L VBG Base Excess 2.9 H Sodium Potassium Chloride Carbon Dioxide Anion Gap BUN Creatinine Est GFR (CKD-EPI)AfAm Est GFR (CKD-EPI)NonAf Random Glucose Lactic Acid Calcium Magnesium Ferritin Total Bilirubin AST ALT Alkaline Phosphatase LD Total Creatine Kinase Troponin I B-Natriuretic Peptide Total Protein Albumin COVID-19 PCR COVID-19 (AYANNA) Cancelled Influenza A (Rapid) Influenza B (Rapid) RSV Rapid Negative 11/22/19 14:30 WBC RBC Hgb Hct MCV MCH MCHC RDW Plt Count MPV Absolute Neuts (auto) Neutrophils % Lymphocytes % Monocytes % Eosinophils % Basophils % Nucleated RBC % PT with INR INR VBG pH POC VBG pCO2 POC VBG pO2 VBG HCO3 VBG O2 Sat (Lorri) VBG Base Excess Sodium Potassium Chloride Carbon Dioxide Anion Gap BUN Creatinine Est GFR (CKD-EPI)AfAm Est GFR (CKD-EPI)NonAf Random Glucose Lactic Acid Calcium Magnesium Ferritin Total Bilirubin AST ALT Alkaline Phosphatase LD Total Creatine Kinase Troponin I B-Natriuretic Peptide Total Protein Albumin COVID-19 PCR Cancelled COVID-19 (AYANNA) Influenza A (Rapid) Influenza B (Rapid) RSV Rapid patient noted to have leukopenia without lymphopenia. patient's flu and rsv negative pending covid. CXR negative. Obtained a CT of the chest that showed possible early signs of COVID, thus could not be excluded. Suspect the patient has COVID infection, will admit patient for further monitoring due to initial hypoxia noted on exam. Dispo: Admit Discharge - Discharge Information Problems reviewed: Yes Clinical Impression/Diagnosis: Hypoxia, Suspected 2019 novel coronavirus infection - Follow up/Referral - Patient Discharge Instructions - Post Discharge Activity
[2019-11-22] MEDS ORDERED: SODIUM CHLORIDE 1,000 ML IV STA (14:31)
[2019-11-22] MEDS ORDERED: ACETAMINOPHEN 1000 MG/100 ML VIAL (NON FORMULARY) IVPB ONE (14:58)
[2019-11-22 15:12] LABS: BASO % 0.8 % (0-2.0); EOS % 0.4 % (0-4.5); HEMATOCRIT 42.4 % (32.4-45.2); LYMPH % 26.2 % (8-40); MCH 30.5 pg (25.7-33.7); MEAN CELL VOLUME 92.5 fl (80-96); MEAN PLT VOLUME 7.8 fl (7.5-11.1); MONO % 16.5 % (3.8-10.2); NEUT % 56.1 % (42.8-82.8); PLATELET COUNT 141 K/MM3 (134-434); RBC 4.59 M/mm3 (3.60-5.2); RDW 15.6 % (11.6-15.6)
[2019-11-22] MEDS ORDERED: ACETAMINOPHEN INJECTION 100 ML IVPB ONE (15:14)
[2019-11-22] MEDS ORDERED: SODIUM CHLORIDE 2,381 ML IV ONE (15:15)
[2019-11-22] MEDS ORDERED: ALBUTEROL SO4 HFA INHALER IH ONE ×3 (15:16→15:17)
[2019-11-22 15:19] LABS: INR 0.94 (0.83-1.09); PROTHROMBIN TIME (PATIENT) 11.1 SEC (9.7-13.0)
[2019-11-22 15:24] VITALS: BMI 28.2
[2019-11-22 15:39] LABS: ALBUMIN 3.6 g/dl (3.4-5.0); ALK PHOS 69 U/L (45-117); ANION GAP 7 MMOL/L (8-16); BILIRUBIN,TOTAL 0.3 mg/dL (0.2-1); BLOOD UREA NITROGEN 14.6 mg/dL (7-18); CALCIUM 9.1 mg/dL (8.5-10.1); CHLORIDE 103 mmol/L (98-107); CO2 29 mmol/L (21-32); CREATININE 0.7 mg/dL (0.55-1.3); GLUCOSE,RANDOM 94 mg/dL (74-106); MAGNESIUM 1.9 mg/dL (1.8-2.4); N-TERMINAL BNP 127.6 pg/ml (5-450); POTASSIUM 4.1 mmol/L (3.5-5.1); SGOT/AST 29 U/L (15-37); SGPT/ALT 32 U/L (13-61); SODIUM 139 mmol/L (136-145); TOT PROT 6.9 g/dl (6.4-8.2)
--- NOTE | 2019-11-22 16:10 | PDOC ---
Attending Attestation - Resident Resident Name: Juan C Huddleston - ED Attending Attestation I have performed the following: I have examined & evaluated the patient, The case was reviewed & discussed with the resident, I agree w/resident's findings & plan, Exceptions are as noted - HPI HPI: 11/22/19 16:07 84 yo F with h/o HtN, HLD, here with cough and body aches. no c/o fever. no n/v/d. no cp no sob. - Physicial Exam PE: 11/22/19 16:08 awake alert lungs with exp wheezing faint left base, no crackles. normal effort. heart rrr no mrg abd soft nt nd ext wwp. no edema. no calf tenderness. alert nolan ented x 3 - Medical Decision Making 11/22/19 16:08 84 yo F with h/o htn HLD here with 2 - 3 days of cough and myalgia. suspect osei virus. plan cxr labs covid test, flu swab. blood cultures. ua. 11/22/19 16:11 pt pulse ox was 90 % on RA, up to 98 with oxygen. due to hypoxia, high suspicion for osei. wll admit ct chest pending. 11/22/19 18:59 ct with possible infection early changes. recommend repeat ct. will admit for hypoxia suspect covid. Discharge - Discharge Information Problems reviewed: Yes Clinical Impression/Diagnosis: Hypoxia, Suspected 2019 novel coronavirus infection - Admission Yes - Follow up/Referral - Patient Discharge Instructions - Post Discharge Activity
[2019-11-22 16:28] LABS: VENOUS PC02 61.2 mmHg (38-52); VENOUS PH 7.32 (7.31-7.41); VENOUS PO2 < 49 mmHg (28-48)
--- NOTE | 2019-11-22 19:20 | PN ---
Teaching Attending Note Name of Resident: Javier Lara ATTENDING PHYSICIAN STATEMENT I saw and evaluated the patient. I reviewed the resident's note and discussed the case with the resident. I agree with the resident's findings and plan as documented. SUBJECTIVE: Patient is an 84 year old woman with a PMH of HTN, HLD, Osteoporosis and Arthritis who presents to the ER with generalized body aches, non productive cough, and chills. She has had these symptoms for the past 3 days. Has recent sick contact with her sister who had pneumonia 2 weeks ago. The patient states she took tylenol at 9 am this morning about 4-5 hours prior to presentation. She denies headaches, nausea, vomiting, chest pain, SOB, abdominal pain, dysuria or hematuria. Denies alcohol, tobacco or illicit drug use. No recent travels. OBJECTIVE: Alert Vital Signs Period Temp Pulse Resp BP Sys/Nguyen Pulse Ox Last 24 Hr 99.8 F-99.8 F 72-83 20-22 124-142/71-85 91-100 HEENT: No Jaundice, eye redness or discharge, PERRLA, EOMI. Normocephalic, atraumatic. External ears are normal and hearing is grossly intact. No nasal discharge. Neck: Supple, nontender. No palpable adenopathy or thyromegaly. No JVD Chest: Good effort. Clear to auscultation and percussion. Heart: Regular. No S3, rub or murmur Abdomen: Not distended, soft, nontender and no HSM. No rebound or guarding. Normal bowel sounds. Ext: Peripheral pulses intact. No leg edema. Skin: Warm and dry. No petechiae, rash or ecchymosis. Neuro: Alert. Oriented x3. CN 2-12 grossly intact. Sensation grossly intact in all four extremities and DTR are symmetric. Psych: Appropriate mood and affect. Good insight. Home Medications Medication Instructions Recorded Diclofenac Sodium [Voltaren] 2 gm TP TID PRN #3 tube 05/01/19 Aspirin Coated [Ecotrin -] 81 mg PO DAILY #30 tablet.ec 07/19/19 Losartan Potassium [Cozaar] 100 mg PO DAILY #14 tablet 07/19/19 Rosuvastatin Calcium [Crestor] 10 mg PO HS #14 tablet 07/19/19 Amitriptyline HCl 25 mg PO HS #30 tablet 09/19/19 Ergocalciferol (Vitamin D2) 50,000 unit PO Q7D #4 capsule 09/19/19 [Vitamin D2] Ciclopirox Olamine [Ciclopirox] 15 gm TP DAILY 10/23/19 Denosumab [Prolia] 60 mg SQ DAILY 10/23/19 Diclofenac Sodium [Voltaren] 100 gm TP PRN PRN 10/23/19 Duloxetine HCl 30 mg PO DAILY 10/23/19 Meloxicam 10 mg PO DAILY 10/23/19 Mupirocin Ointment [Bactroban] 1 applic TP TID 10/23/19 Ibuprofen [Motrin -] 600 mg PO QID #28 tablet 10/25/19 Abnormal Lab Results 11/22/19 11/22/19 11/22/19 14:30 14:30 14:30 WBC 3.0 L Monocytes % 16.5 H D POC VBG pCO2 61.2 H POC VBG pO2 < 49 H VBG HCO3 30.3 H VBG O2 Sat (Lorri) 60.7 L VBG Base Excess 2.9 H Anion Gap 7 L ASSESSMENT AND PLAN: 1. Rule out COVID-19 - Desaturated to 90 on room air. No acute abnormality on CXR and no acute infiltrates noted on chest CT scan. Flu swab and RSV rapid test are negative. Results of respiratory virus panel pending. Will send urine for legionella and pneumococcal antigens. There was concern for COVID-19 and viral testing for COVID-19 was collected and sent out by the ER staff. Patient placed on droplet and airborne isolation. Started on supplemental oxygen via nasal cannula. Counseled to avoid NSAIDS. EKG pending. Consult ID. Will continue comprehensive care for all of patients comorbid conditions. 2. Hypertension - Restart suitable outpatient antihypertensive drugs when clinically appropriate. Revise regimen to ensure [id number] excellent BP control and assistant counsel patient on the injurious effects of uncontrolled hypertension. Nonpharmacologic measures to control hypertension like weight loss, salt restriction and exercise discussed. Importance of adherence to treatment regimen and attainment of normotension emphasized. 3. DVT prophylaxis - Lovenox 40 mg SQ q 24 hours. 4. Advance directives - Full code
--- NOTE | 2019-11-22 19:44 | HP ---
CHIEF COMPLAINT: SOB and fever PCP: Dr. Garcia HISTORY OF PRESENT ILLNESS: 84 y/o female PMH HTN, HLD, osteoporosis, and OA c/o 3 days of fever, cough and SOB. She states that she noted never before felt SOB and fever that would not remit with home Tylenol. The pt reports no other contacts with similar symptoms but has been highly social. She recently had a birthday republican in her apartment where family and neighbors attended. Her son, a [place] bus conductor has also frequented her home. She reports elderly relatives in her building visit her. The pt has not taken her temperature at home. The cough is dry and constant. She has experienced similar SOB but it is usually relieved by benadryl, as she ass ociates it with seasonal allergies. She denies CP, PND, and orthopnea. Denies nausea, vomiting, diarrhea, and constipation. No new meds/herbs, drugs/supplements. No recent illness, sick contacts, or recent travel. Family history: Daughter with asthma Surgical history: RIGHT rotator cuff repair (2014) Social history: Denies cigarette, etoh, and recreational drug use. 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 ER course was notable for: CT chest with RLL ground glass opacity; however is a chronic finding - no acute changes PAST MEDICAL HISTORY: HTN, HLD, osteoporosis, and OA Allergies shellfish derived Allergy (Verified 11/22/19 14:53) contrast dye Allergy (Uncoded 11/22/19 14:53) HOME MEDICATIONS: Medication Instructions Recorded Diclofenac Sodium [Voltaren] 2 gm TP TID PRN #3 tube 05/01/19 Aspirin Coated [Ecotrin -] 81 mg PO DAILY #30 tablet.ec 07/19/19 Losartan Potassium [Cozaar] 100 mg PO DAILY #14 tablet 07/19/19 Rosuvastatin Calcium [Crestor] 10 mg PO HS #14 tablet 07/19/19 Amitriptyline HCl 25 mg PO HS #30 tablet 09/19/19 Ergocalciferol (Vitamin D2) 50,000 unit PO Q7D #4 capsule 09/19/19 [Vitamin D2] Ciclopirox Olamine [Ciclopirox] 15 gm TP DAILY 10/23/19 Denosumab [Prolia] 60 mg SQ DAILY 10/23/19 Diclofenac Sodium [Voltaren] 100 gm TP PRN PRN 10/23/19 Duloxetine HCl 30 mg PO DAILY 10/23/19 Meloxicam 10 mg PO DAILY 10/23/19 Mupirocin Ointment [Bactroban] 1 applic TP TID 10/23/19 Ibuprofen [Motrin -] 600 mg PO QID #28 tablet 10/25/19 REVIEW OF SYSTEMS CONSTITUTIONAL: Absent: fever, chills, diaphoresis, generalized weakness, malaise, loss of appetite, weight change HEENT: Absent: rhinorrhea, nasal congestion, throat pain, throat swelling, difficulty swallowing, mouth swelling, ear pain, eye pain, visual changes CARDIOVASCULAR: Absent: chest pain, syncope, palpitations, irregular heart rate, lighthea dedness, peripheral edema RESPIRATORY: Absent: cough, shortness of breath, dyspnea with exertion, orthopnea, wheezing, stridor, hemoptysis GASTROINTESTINAL: Absent: abdominal pain, abdominal distension, nausea, vomiting, diarrhea, constipation, melena, hematochezia GENITOURINARY: Absent: dysuria, frequency, urgency, hesitancy, hematuria, flank pain, genital pain MUSCULOSKELETAL: Absent: myalgia, arthralgia, joint swelling, back pain, neck pain SKIN: Absent: rash, itching, pallor HEMATOLOGIC/IMMUNOLOGIC: Absent: easy bleeding, easy bruising, lymphadenopathy, frequent infections ENDOCRINE: Absent: unexplained weight gain, unexplained weight loss, heat intolerance, cold intolerance NEUROLOGIC: Absent: headache, focal weakness or paresthesias, dizziness, unsteady gait, seizure, mental status changes, bladder or bowel incontinence PSYCHIATRIC: Absent: anxiety, depression, suicidal or homicidal ideation, hallucinations. PHYSICAL EXAMINATION Vital Signs - 24 hr 11/22/19 11/22/19 11/22/19 14:50 14:58 15:08 Temperature 99.8 F H Pulse Rate 83 83 Pulse Rate [ Radial] Respiratory 20 Rate Blood Pressure 142/85 Blood Pressure [Right Arm] O2 Sat by Pulse 91 L 100 99 Oximetry (%) 11/22/19 11/22/19 16:00 17:11 Temperature Pulse Rate Pulse Rate [ 72 Radial] Respiratory 22 H Rate Blood Pressure Blood Pressure 124/71 [Right Arm] O2 Sat by Pulse 99 98 Oximetry (%) GENERAL: AO x3 NAD, Pashto speaking HEAD: NCAT EYES: ANTOINETTE, EOMI, sclera anicteric, conjunctiva clear. No ptosis. ENT: Ears normal, nares patent, oropharynx clear without exudates, moist mucous membranes. NECK: Trachea midline, full range of motion, supple. LUNGS: CTAB , no wheezes, no crackles, no accessory muscle use. HEART: RRR, S1, S2 without murmur, rub or gallop. ABDOMEN: Obese, soft, nontender, nondistended, normoactive bowel sounds, no guarding, no rebound, no hepatosplenomegaly, no masses. Fozia, Mg, Rovsing, obturator sign NEG. EXTREMITIES: 2+ pulses, warm, well-perfused, no edema. NEUROLOGICAL: Cranial nerves II through XII grossly intact. Strength 5/5 in UE and LE in both distal and proximal flexors. Brachial reflex 2+ BL. Patellar reflex 2+ BL. FTN NEG. PSYCH: Normal mood, normal affect. SKIN: Warm, dry, normal turgor, no rashes or lesions noted Laboratory Results - last 24 hr 11/22/19 11/22/19 11/22/19 14:30 14:30 14:30 WBC 3.0 L RBC 4.59 Hgb 14.0 Hct 42.4 MCV 92.5 MCH 30.5 MCHC 33.0 RDW 15.6 Plt Count 141 D MPV 7.8 Absolute Neuts (auto) 1.7 Neutrophils % 56.1 Lymphocytes % 26.2 Monocytes % 16.5 H D Eosinophils % 0.4 D Basophils % 0.8 Nucleated RBC % 0 PT with INR 11.10 INR 0.94 VBG pH POC VBG pCO2 POC VBG pO2 VBG HCO3 VBG O2 Sat (Lorri) VBG Base Excess Sodium 139 Potassium 4.1 Chloride 103 Carbon Dioxide 29 Anion Gap 7 L BUN 14.6 Creatinine 0.7 Est GFR (CKD-EPI)AfAm 92.21 Est GFR (CKD-EPI)NonAf 79.56 Random Glucose 94 Lactic Acid Calcium 9.1 Magnesium 1.9 Ferritin Total Bilirubin 0.3 AST 29 ALT 32 Alkaline Phosphatase 69 LD Total Creatine Kinase 40 Troponin I < 0.02 B-Natriuretic Peptide 127.6 Total Protein 6.9 Albumin 3.6 Influenza A (Rapid) Influenza B (Rapid) RSV Rapid 11/22/19 11/22/19 11/22/19 14:30 14:30 14:30 WBC RBC Hgb Hct MCV MCH MCHC RDW Plt Count MPV Absolute Neuts (auto) Neutrophils % Lymphocytes % Monocytes % Eosinophils % Basophils % Nucleated RBC % PT with INR INR VBG pH POC VBG pCO2 POC VBG pO2 VBG HCO3 VBG O2 Sat (Lorri) VBG Base Excess Sodium Potassium Chloride Carbon Dioxide Anion Gap BUN Creatinine Est GFR (CKD-EPI)AfAm Est GFR (CKD-EPI)NonAf Random Glucose Lactic Acid 1.4 Calcium Magnesium Ferritin 76.0 Total Bilirubin AST ALT Alkaline Phosphatase LD Total 195 Creatine Kinase Troponin I B-Natriuretic Peptide Total Protein Albumin Influenza A (Rapid) Negative Influenza B (Rapid) Negative RSV Rapid 11/22/19 11/22/19 14:30 14:30 WBC RBC Hgb Hct MCV MCH MCHC RDW Plt Count MPV Absolute Neuts (auto) Neutrophils % Lymphocytes % Monocytes % Eosinophils % Basophils % Nucleated RBC % PT with INR INR VBG pH 7.32 POC VBG pCO2 61.2 H POC VBG pO2 < 49 H VBG HCO3 30.3 H VBG O2 Sat (Lorri) 60.7 L VBG Base Excess 2.9 H Sodium Potassium Chloride Carbon Dioxide Anion Gap BUN Creatinine Est GFR (CKD-EPI)AfAm Est GFR (CKD-EPI)NonAf Random Glucose Lactic Acid Calcium Magnesium Ferritin Total Bilirubin AST ALT Alkaline Phosphatase LD Total Creatine Kinase Troponin I B-Natriuretic Peptide Total Protein Albumin Influenza A (Rapid) Influenza B (Rapid) RSV Rapid Negative ASSESSMENT/PLAN: 84 y/o female PMH HTN, HLD, osteoporosis, and OA c/o 3 days of fever, cough and SOB. Pt available for interview at # Acute desaturation - Cont. 2L NC - Serum legionella - r/o covid - Isolation precautions: contact, droplet, airborne - Strict hand washing # HTN - Losartan 100 po qd # HLD - Crestor 10 mg po hs # FEN - PO - Cont. to monitor - Low na diet # DVT ppx - Lovenox # Disposition - Admit to med/surg Javier Lara MD ATTENDING PHYSICIAN STATEMENT I saw and evaluated the patient. I reviewed the resident's note and discussed the case with the resident. I agree with the resident's findings and plan as documented. SUBJECTIVE: OBJECTIVE: ASSESSMENT AND PLAN:
[2019-11-22 22:00] LABS: EPI CELLS 4 /uL (0-25.1); HYALINE CASTS 0 /uL (0-3.1); URINE APPEARANCE CLEAR; URINE BACTERIA 26 /uL (0-1359); URINE BILIRUBIN NEGATIVE (NEGATIVE); URINE COLOR YELLOW; URINE GLUCOSE (UA) NEGATIVE (NEGATIVE); URINE KETONE NEGATIVE (NEGATIVE); URINE LEUK ESTERASE NEGATIVE (NEGATIVE); URINE NITRITE NEGATIVE (NEGATIVE); URINE PROTEIN NEGATIVE (NEGATIVE); URINE RBC 20 /uL (0-23.9); URINE UROBILINOGEN 0.2 mg/dL (0.2-1.0); URINE WBC 12 /uL (0-25.8)
[2019-11-23 07:31] LABS: BASO % 0.5 % (0-2.0); EOS % 0.5 % (0-4.5); HEMATOCRIT 41.1 % (32.4-45.2); HEMOGLOBIN 13.6 GM/dL (10.7-15.3); MCH 30.8 pg (25.7-33.7); MEAN CELL VOLUME 93.5 fl (80-96); MEAN PLT VOLUME 8.1 fl (7.5-11.1); MONO % 14.1 % (3.8-10.2); NEUT % 48.9 % (42.8-82.8); PLATELET COUNT 123 K/MM3 (134-434); RBC 4.39 M/mm3 (3.60-5.2); RDW 15.7 % (11.6-15.6); WHITE BLOOD COUNT 3.2 K/mm3 (4.0-10.0)
[2019-11-23 07:49] LABS: ALBUMIN 3.4 g/dl (3.4-5.0); BILIRUBIN,TOTAL 0.5 mg/dL (0.2-1); BLOOD UREA NITROGEN 13.6 mg/dL (7-18); CALCIUM 8.2 mg/dL (8.5-10.1); CREATININE 0.6 mg/dL (0.55-1.3); MAGNESIUM 1.9 mg/dL (1.8-2.4); TOT PROT 6.4 g/dl (6.4-8.2)
[2019-11-23] MEDS ORDERED: ENOXAPARIN NA (PORCINE) 40 MG/0.4 ML DISP.SYRIN SQ ONE (09:14)
[2019-11-23] MEDS ORDERED: ASPIRIN COATED 81 MG TABLET.EC ONE (09:14)
[2019-11-23] MEDS ORDERED: ASPIRIN COATED 81 MG TABLET.EC PO SCH (10:00)
[2019-11-23] MEDS ORDERED: ENOXAPARIN NA (PORCINE) 40 MG/0.4 ML DISP.SYRIN SQ SCH (10:00)
[2019-11-23] MEDS ORDERED: LOSARTAN POTASSIUM 50 MG TABLET (FP) PO SCH (10:00)
--- NOTE | 2019-11-23 10:53 | EKG ---
Test Reason : Blood Pressure : / mmHG Vent. Rate : 084 BPM Atrial Rate : 084 BPM P-R Int : 138 ms QRS Dur : 078 ms QT Int : 378 ms P-R-T Axes : 043 000 045 degrees QTc Int : 446 ms NORMAL SINUS RHYTHM NORMAL ECG WHEN COMPARED WITH ECG OF 23-OCT-2019 16:22, NO SIGNIFICANT CHANGE WAS FOUND Confirmed by CHELLE AGUILLON MD ([id number]) on 11/23/2019 10:53:07 AM Referred By: Confirmed By:CHELLE AGUILLON MD
--- NOTE | 2019-11-23 13:45 | CON.ID ---
Consult Consult Specialty:: infectious diseases Referred by:: hospitalist Reason for Consultation:: r/o covd - History of Present Illness Chief Complaint: sob ,dirrhoea History of Present Illness: 84 year old woman with a PMH of HTN, HLD, Osteoporosis and Arthritis who presents to the ER with generalized body aches, non productive cough, and chills. She has had these symptoms for the past 3 days. Has recent sick contact with her sister who had pneumonia 2 weeks ago. The patient states she took tylenol at 9 am this morning about 4-5 hours prior to presentation. She denies headaches, nausea, vomiting, chest pain, SOB, abdominal pain, dysuria or hematuria. Denies alcohol, tobacco or illicit drug use. No recent travels. currently patient is not really feeling too bad her wbc has been coming down - History Source History Provided By: Patient, Medical Record Limitations to Obtaining History: Language Barrier - Alcohol/Substance Use Hx Alcohol Use: No - Smoking History Smoking history: Never smoked Have you smoked in the past 12 months: No Aproximately how many cigarettes per day: 0 Home Medications - Allergies Allergies/Adverse Reactions: Allergies Allergy/AdvReac Type Severity Reaction Status Date / Time shellfish derived Allergy Verified 11/22/19 14:53 contrast dye Allergy Uncoded 11/22/19 14:53 - Home Medications Home Medications: Ambulatory Orders Diclofenac Sodium [Voltaren] 2 gm TP TID PRN #3 tube 05/01/19 Aspirin Coated [Ecotrin -] 81 mg PO DAILY #30 tablet.ec 07/19/19 Losartan Potassium [Cozaar] 100 mg PO DAILY #14 tablet 07/19/19 Rosuvastatin Calcium [Crestor] 10 mg PO HS #14 tablet 07/19/19 Amitriptyline HCl 25 mg PO HS #30 tablet 09/19/19 Ergocalciferol (Vitamin D2) [Vitamin D2] 50,000 unit PO Q7D #4 capsule 09/19/19 Ciclopirox Olamine [Ciclopirox] 15 gm TP DAILY 10/23/19 Denosumab [Prolia] 60 mg SQ DAILY 10/23/19 Diclofenac Sodium [Voltaren] 100 gm TP PRN PRN 10/23/19 Duloxetine HCl 30 mg PO DAILY 10/23/19 Meloxicam 10 mg PO DAILY 10/23/19 Mupirocin Ointment [Bactroban] 1 applic TP TID 10/23/19 Ibuprofen [Motrin -] 600 mg PO QID #28 tablet 10/25/19 Review of Systems - Review of Systems Constitutional: reports: No Symptoms Eyes: reports: No Symptoms HENT: reports: No Symptoms Neck: reports: No Symptoms Cardiovascular: reports: No Symptoms Respiratory: reports: SOB, Other Gastrointestinal: reports: No Symptoms Genitourinary: reports: No Symptoms Musculoskeletal: reports: No Symptoms Integumentary: reports: No Symptoms Neurological: reports: No Symptoms Endocrine: reports: No Symptoms Hematology/Lymphatic: reports: No Symptoms Psychiatric: reports: No Symptoms Physical Exam Vital Signs: Vital Signs Temperature 98.2 F 11/23/19 10:25 Pulse Rate 82 11/23/19 13:24 Respiratory Rate 20 11/23/19 13:24 Blood Pressure 131/108 H 11/23/19 13:24 O2 Sat by Pulse Oximetry (%) 95 11/23/19 13:24 Constitutional: Yes: No Distress, Calm Cardiovascular: Yes: S1, S2 Respiratory: Yes: Regular, Poor Air Entry Gastrointestinal: Yes: Normal Bowel Sounds, Soft Musculoskeletal: Yes: WNL Extremities: Yes: WNL Neurological: Yes: Alert, Oriented Psychiatric: Yes: Alert, Oriented Labs: CBC, BMP 11/23/19 05:52 11/23/19 05:52 Imaging - Results Chest X-ray: Report Reviewed, Image Reviewed Cat Scan: Report Reviewed, Image Reviewed Assessment/Plan this patient with multiple medical problems coming to the hospital for cough and sob and contact with her sister who had pneumonia i have low suspicion of covid in her i am going to start her on zithro orally rest as per the team patient clinically stable
[2019-11-23] MEDS ORDERED: AZITHROMYCIN 500 MG TABLET PO SCH (14:00)
[2019-11-23] MEDS ORDERED: AZITHROMYCIN 250 MG TABLET ONE (14:37)
[2019-11-23 16:23] VITALS: BP 120/54; PULSE 94; TEMP 98.8
--- NOTE | 2019-11-23 17:53 | DS ---
Physical Exam: SUBJECTIVE: Patient seen and examined by attending. OBJECTIVE: Vital Signs Period Temp Pulse Resp BP Sys/Nguyen Pulse Ox Last 24 Hr 98.2 F-99.4 F 72-94 18-22 114-154/51-108 94-100 PHYSICAL EXAM Please refer to attending note for physical exam LABS Laboratory Results - last 24 hr 11/22/19 11/22/19 11/22/19 14:30 14:30 19:30 WBC RBC Hgb Hct MCV MCH MCHC RDW Plt Count MPV Absolute Neuts (auto) Neutrophils % Lymphocytes % Monocytes % Eosinophils % Basophils % Nucleated RBC % Sodium Potassium Chloride Carbon Dioxide Anion Gap BUN Creatinine Est GFR (CKD-EPI)AfAm Est GFR (CKD-EPI)NonAf Random Glucose Calcium Phosphorus Magnesium Total Bilirubin AST ALT Alkaline Phosphatase Total Protein Albumin Urine Color Yellow Urine Appearance Clear Urine pH 5.0 D Ur Specific [place] 1.007 L Urine Protein Negative Urine Glucose (UA) Negative Urine Ketones Negative Urine Blood 1+ H Urine Nitrite Negative Urine Bilirubin Negative Urine Urobilinogen 0.2 Ur Leukocyte Esterase Negative Urine WBC (Auto) 12 Urine RBC (Auto) 20 Urine Casts (Auto) 0 U Epithel Cells (Auto) 4 Urine Bacteria (Auto) 26 COVID-19 PCR Cancelled COVID-19 (AYANNA) Cancelled 11/23/19 11/23/19 05:52 05:52 WBC 3.2 L RBC 4.39 Hgb 13.6 Hct 41.1 MCV 93.5 MCH 30.8 MCHC 33.0 RDW 15.7 H Plt Count 123 L MPV 8.1 Absolute Neuts (auto) 1.6 Neutrophils % 48.9 Lymphocytes % 36.0 D Monocytes % 14.1 H Eosinophils % 0.5 Basophils % 0.5 Nucleated RBC % 0 Sodium 144 Potassium 4.0 Chloride 108 H Carbon Dioxide 29 Anion Gap 7 L BUN 13.6 Creatinine 0.6 Est GFR (CKD-EPI)AfAm 97.01 Est GFR (CKD-EPI)NonAf 83.70 Random Glucose 94 Calcium 8.2 L Phosphorus 3.0 Magnesium 1.9 Total Bilirubin 0.5 AST 27 ALT 30 Alkaline Phosphatase 63 Total Protein 6.4 Albumin 3.4 Urine Color Urine Appearance Urine pH Ur Specific [place] Urine Protein Urine Glucose (UA) Urine Ketones Urine Blood Urine Nitrite Urine Bilirubin Urine Urobilinogen Ur Leukocyte Esterase Urine WBC (Auto) Urine RBC (Auto) Urine Casts (Auto) U Epithel Cells (Auto) Urine Bacteria (Auto) COVID-19 PCR COVID-19 (AYANNA) HOSPITAL COURSE: Date of Admission:11/22/19 Date of Discharge: 11/23/19 84 y/o/f with PMHx of HTN, HLD, osteoporosis, and OA presented to the ED after 3 days of fever, cough and SOB. Patient was tested for COVID and was put on isolation precautions. Patient's vital signs remained stable while admitted. She remained afebrile and her SpO2 was in the high 90s on room air. Patient was seen by ID and was started on Azithromycin and will continue Azithromycin at home. Patient was given COVID-19 instructions in portuguese and ukrainian. Patient stable for discharge home at this time. COVID testing pending at this time. Minutes to complete discharge: 36 Discharge Summary Problems reviewed: Yes Reason For Visit: UPPER RESPIRATORY INFECTION,HYPOXIA Condition: Good - Instructions Diet, Activity, Other Instructions: You presented to the hospital due to SOB, fever and cough. You were tested for COVID-19 and your lab test is pending. You vital signs and oxygen requirements remained stable while here and your labs did not show significant abnormalities. You did not have a fever while admitted. Please follow the included instructions in the COVID-19 packet. Medication Changes: 1. STOP taking Ibuprofen at this time. This may worsen your illness if you are positive for COVID-19. We recommend taking Tylenol for fevers and/or body aches if you experience these symptoms. Follow up with the following physicians: 1. Please follow up with your primary care provider within one week of discharge for further management of your medical conditions. Activity and Diet 1. Please monitor your diet as you need to intake foods with less salts, fats and drink plenty of fluids. Continue all your other medications as prescribed Please return to the ER if you have any signs or symptoms of chest pain, shortness of breath, uncontrollable fever, chills, nausea, vomiting, numbness, tingling, or weakness in any part of your body, changes in vision, or slurred speech. Please return to the ER if symptoms persist, worsen, or new symptoms arise. Usted se present en el hospital debido a SOB, fiebre y tos. Se le realiz la prueba de COVID-19 y tobin prueba de laboratorio est pendiente. Tova signos vitales y los requisitos de oxgeno permanecieron estables mientras que aqu y tova laboratorios no mostraron anormalidades significativas. No tuvo fiebre val el ingreso. Siga las instrucciones incluidas en el paquete COVID-19. Cambios de medicacin: 1. DEJE de kenyon ibuprofeno en allan momento. [place] puede empeorar tobin enfermedad si es positivo para COVID-19. Recomendamos kenyon Tylenol para las fiebres y / o godfrey corporales si experimenta estos sntomas. Dusty un seguimiento con los siguientes mdicos: 1. Dusty un seguimiento con tobin proveedor de atencin primaria dentro de layo semana despus del jeannie para un mayor manejo de tova condiciones mdicas. Actividad y dieta 1. Controle tobin dieta, ya que necesita ingerir alimentos con menos sales, grasas y beber muchos lquidos. Contine todos tova otros medicamentos segn lo prescrito. Regrese a la valeriano de emergencias si tiene signos o sntomas de dolor en el pecho, falta de aliento, fiebre incontrolable, escalofros, nuseas, vmitos, entumecimiento, hormigueo o debilidad en alguna parte de tobin cuerpo, cambios en la visin o dificultad para hablar. Regrese a la valeriano de emergencias si los sntomas persisten, empeoran o surgen nuevos sntomas. Instrucciones de descarga Para personas con COVID-19 confirmado o sospechado que son mdicamente estables y no necesitan ser hospitalizado Para personas con COVID-19 que fueron hospitalizadas y ahora mdicamente estables para irse a casa [place] proveedor de atencin mdica y el personal de edel pblica [place] determinado que puede estar aislado y monitoreado en casa. Si est esperando los resultados de tobin prueba, recibir layo llamada con tobin resultados cuando estn disponibles, lo que puede demorar hasta layo semana. Siga los pasos de prevencin a continuacin hasta que un proveedor de atencin mdica o un departamento de edel indique Puede volver a tova actividades normales. Al salir del hospital: Use layo mscara cuando salga del hospital. No use el transporte pblico. Es mejor que camine a casa si vive a poca distancia y se siente lo suficientemente arian keila para caminar a casa. Si tiene que kenyon un automvil, use layo mscara y deje la ventana abierta. Despus de llegar a casa, qudese all. Realice un lavado frecuente de yas y antes de tocar las superficies. Cubra tobin tos o estornudos. Solicite ayuda al personal del hospital con el transporte, si es necesario. Si tobin prueba COVID-19 es positiva, o mientras espera los resultados de COVID-19: Qudese en casa excepto para obtener atencin mdica relacionada con tobin enfermedad: No vaya al trabajo, la escuela o reas pblicas, keila tiendas o cines. No use el transporte pblico. Cancele todas las citas mdicas no urgentes, keila la atencin dental de rutina. Separarse de otras personas y mascotas en tobin hogar: Qudese en layo habitacin separada con la alonso cerrada, si es posible Use un yolanda separado, si est disponible Los miembros del hogar no expuestos pueden querer quedarse en otro lugar, si es posible Pdale a otros que cuiden a tova animales. Use layo mascarilla cuando est cerca de otras personas o mascotas. Cubra tobin tos y estornudos con un pauelo de papel. Tire los pauelos desechables en un basurero forrado con plstico. bolsa y limpie tova yas despus de tirar el pauelo desechable. Lvese las yas con frecuencia: Lvese las yas con frecuencia con agua y jabn (val 20 segundos) o con desinfectante para yas que contenga 60% a 95% de alcohol. Si usa desinfectante para yas con alcohol, cubra todas las superficies de tova yas y frtelas. hasta que se sientan secos. Use agua y jabn si tova yas estn visiblemente sucias. Evitar tocarse los ojos, la nariz y la boca. Lvese las yas antes y despus si es necesario. toca tu gely No comparta artculos para el hogar: No comparta tazas, platos, utensilios para comer, toallas, ropa de cama o ropa con otras personas o mascotas. Despus de usar estos artculos, lvelos arian con agua y jabn. Si alguien ms lava la ropa, debe usar guantes y lavarse las yas despus de manipular la lavandera. El jabn y el agua tibia desinfectarn la ropa sucia. Limpie las superficies de "alto contacto" todos los roman: Limpie las superficies de "alto contacto", keila mostradores, mesas, perillas de las nica, accesorios de yolanda, inodoros, telfonos, teclados, tabletas y mesitas de noche. Use un aerosol o toallitas de limpieza domstica de acuerdo con las instrucciones de la etiqueta, o prepare un blanqueador solucin para limpieza * 4 cucharaditas de leja por litro de agua * O 1/3 taza de cloro por galn de agua Limpie cualquier superficie que tenga dimple, heces o fluidos corporales. Susan las instrucciones de la etiqueta del producto de limpieza para un uso seguro y efectivo del producto de limpieza. Controle tova sntomas: Busque atencin mdica inmediata si tobin enfermedad est empeorando, keila si tiene dificultades respiracin. Antes de buscar atencin, llame a tobin proveedor de atencin mdica y dgale que tiene COVID-19 o que tiene siendo evaluado para COVID-19. Pngase layo mscara facial antes de ingresar a la instalacin. * Estos pasos ayudarn al consultorio del proveedor de atencin mdica a mantener a otras personas en el consultorio o valeriano de espera de infectarse o exponerse. Si tiene layo emergencia mdica, llame al 911 y notifique al despachador que tiene o est siendo evaluado para COVID-19. Pngase layo mscara facial antes de que lleguen los servicios mdicos de emergencia. Llame con anticipacin antes de visitar a tobin mdico: Si tiene layo geraldine mdica, llame al proveedor de atencin mdica y dgale que tiene o estn siendo evaluados para COVID-19. * [place] ayudar a la oficina del proveedor de atencin mdica a decidir si la geraldine puede reprogramarse o tome medidas para evitar que otras personas se infecten o se expongan. Discontinuar el aislamiento del hogar: Las personas con COVID-19 confirmado deben permanecer bajo precauciones de aislamiento en el hogar hasta que se lo indique tova proveedores de atencin mdica y departamentos de edel para interrumpir el aislamiento en el hogar. Para ms informacin: Visite el sitio web de los [facility] en www.cdc.gov Llame al Departamento de Edel del [place] al [phone]. Llame a la lnea directa COVID-19 de la [facility] al [phone]. Si banegas despues horas y reciba un mensaje, deje tobin nombre y nmero de telfono y recibir layo devolucin de llamada despus de recuperar tobin mensaje por la maana. Instrucciones de descarga Para miembros del hogar, parejas ntimas y cuidadores de personas con sospecha o COVID-19 confirmado que son dados de jeannie Controle tobin propia edel: Qudese en habitaciones separadas si es posible, o keila mnimo, anupam separadas. Use layo mscara facial si usted y la persona con COVID-19 sospechoso o confirmado deben estar en La misma habitacin. Asegrese de que los espacios compartidos en el hogar tengan un buen flujo de aire, keila con layo ventana abierta, el tiempo lo permite. No comparta platos, vasos, vasos, utensilios para comer, toallas, ropa de cama u otros artculos con personas con COVID-19 sospechoso o confirmado. Llame a tobin proveedor de atencin mdica de inmediato si presenta sntomas sugestivos de COVID-19 keila keila fiebre, tos o falta de aliento. Ayudando a layo persona con COVID-19 sospechoso o confirmado: Asegrese de comprender y ayudar a la persona con el COVID-19 sospechoso o confirmado a seguir las instrucciones de tobin proveedor de atencin mdica para los medicamentos y la atencin. Ayuda con las necesidades bsicas en el hogia y apoyo para la compra de alimentos, recetas, y otras necesidades personales. Controlar los sntomas de la persona. Si se estn enfermando, particularmente con dificultad para respirar. o falta de aliento, llame a tobin proveedor de atencin mdica y dgales ellos que la persona hernandez sospechado o confirmado COVID-19. * [place] ayudar a que el consultorio del proveedor de atencin mdica tome medidas para mantener a otras personas en el consultorio o valeriano de espera de infectarse o exponerse. Llame al 911 si la persona tiene layo emergencia mdica. Notifique al personal del despachador que el paciente tiene o est siendo evaluado por COVID-19. Visitantes: No permita visitas a menos que tengan layo necesidad esencial de estar en el [facility]. Lvese las yas con frecuencia: Lvese las yas con frecuencia con agua y jabn (val 20 segundos) o con desinfectante para yas que contenga 60% a 95% de alcohol. Si usa desinfectante para yas con alcohol, cubra todas las superficies de tova yas y frtelas. hasta que se sientan secos. Use agua y jabn si tova yas estn visiblemente sucias. Evitar tocarse los ojos, la nariz y la boca con las yas sin adi. Instrucciones de limpieza para el hogar: Limpie las superficies de "alto contacto", keila mostradores, mesas, perillas de las nica, accesorios de yolanda, inodoros, telfonos, teclados, tabletas y mesitas de noche. Limpie cualquier superficie que tenga dimple, heces o fluidos corporales. Use un aerosol o toallita de limpieza domstica, de acuerdo con las instrucciones de la etiqueta. Susan las instrucciones de la etiqueta del producto de limpieza para un uso seguro y efectivo del producto de limpieza. Otras instrucciones de limpieza: Use layo mascarilla y guantes si toca la dimple, las heces o los fluidos corporales de la persona, keila saliva, esputo, moco nasal, vmito u orina. Qutese y lave inmediatamente la ropa o ropa de cama que contenga dimple, heces o lquidos corporales. Use guantes mientras maneja artculos sucios y mantenga los artculos sucios lejos de tobin cuerpo. Al retirar el equipo de proteccin personal, chris qutese y deseche los guantes. Lvese las yas despus de quitarse los guantes. A continuacin, retire y deseche la mascarilla facial. Lvate las yas otra vez. Coloque todos los guantes usados, mascarillas y otros artculos contaminados en un recipiente forrado con un bolsa de plstico antes de desecharlos con otros desechos domsticos. Despus de que el paciente usa artculos keila platos, vasos, vasos, utensilios para comer, toallas o ropa de cama lvelos arian con agua y jabn. Susan y siga las instrucciones en las etiquetas de ropa y detergente. Use detergente normal para la ropa de acuerdo con las instrucciones de la lavadora y secar arian usando las temperaturas ms clidas recomendadas en la etiqueta de la ropa. Discuta cualquier pregunta adicional con tobin departamento de edel o atencin mdica local o estatal proveedor. Para ms kell: Visite el sitio web de los [facility] en www.cdc.gov Llame a la lnea directa COVID-19 de la [facility] al [phone]. Si banegas despues horas y reciba un mensaje, deje tobin nombre y nmero de telfono y recibir layo devolucin de llamada despus de recuperar tobin mensaje por la maana. Referrals: Harvinder Garcia MD [Non Staff, Medical] - Disposition: HOME - Home Medications Comprehensive Discharge Medication List: Ambulatory Orders Aspirin Coated [Ecotrin -] 81 mg PO DAILY #30 tablet.ec 07/19/19 Losartan Potassium [Cozaar] 100 mg PO DAILY #14 tablet 07/19/19 Rosuvastatin Calcium [Crestor] 10 mg PO HS #14 tablet 07/19/19 Amitriptyline HCl 25 mg PO HS #30 tablet 09/19/19 Ergocalciferol (Vitamin D2) [Vitamin D2] 50,000 unit PO Q7D #4 capsule 09/19/19 Mupirocin Ointment [Bactroban 2% Ointment -] 1 applic TP TID 10/23/19 Mirtazapine 15 mg PO DAILY 11/23/19 This patient is new to me today: Yes Date on this admission: 11/23/19 Emergency Visit: Yes ED Registration Date: 11/22/19 Care time: The patient presented to the Emergency Department on the above date and was hospitalized for further evaluation of their emergent condition. Critical Care patient: No - Discharge Referral Referred to [facility] Med P.C.: No ATTENDING PHYSICIAN STATEMENT I saw and evaluated the patient. I reviewed the resident's note and discussed the case with the resident. I agree with the resident's findings and plan as documented. SUBJECTIVE: OBJECTIVE: ASSESSMENT AND PLAN:
--- NOTE | 2019-11-23 18:25 | PN ---
Progress Note (short form) - Note Progress Note: SUBJECTIVE: Complains of diarrhea. No nausea/vomiting. Cough/SOB improving. OBJECTIVE: Afebrile, Hemaodynamically Stable Last Vital Signs Temp Pulse Resp BP Pulse Ox 98.8 F 94 H 20 120/54 L 97 11/23/19 16:13 11/23/19 16:13 11/23/19 16:13 11/23/19 16:13 11/23/19 16:13 HEENT - Atraumatic, Normocephalic Heart - S1, S2, RRR Lungs - clear to auscultation Abdomen - Soft, non-tender. Bowel Sounds normal. Extremities - LE varicosities. No calf tenderness. Laboratory Results - last 24 hr 11/22/19 11/22/19 11/22/19 14:30 14:30 19:30 WBC RBC Hgb Hct MCV MCH MCHC RDW Plt Count MPV Absolute Neuts (auto) Neutrophils % Lymphocytes % Monocytes % Eosinophils % Basophils % Nucleated RBC % Sodium Potassium Chloride Carbon Dioxide Anion Gap BUN Creatinine Est GFR (CKD-EPI)AfAm Est GFR (CKD-EPI)NonAf Random Glucose Calcium Phosphorus Magnesium Total Bilirubin AST ALT Alkaline Phosphatase Total Protein Albumin Urine Color Yellow Urine Appearance Clear Urine pH 5.0 D Ur Specific [place] 1.007 L Urine Protein Negative Urine Glucose (UA) Negative Urine Ketones Negative Urine Blood 1+ H Urine Nitrite Negative Urine Bilirubin Negative Urine Urobilinogen 0.2 Ur Leukocyte Esterase Negative Urine WBC (Auto) 12 Urine RBC (Auto) 20 Urine Casts (Auto) 0 U Epithel Cells (Auto) 4 Urine Bacteria (Auto) 26 COVID-19 PCR Cancelled COVID-19 (AYANNA) Cancelled 11/23/19 11/23/19 05:52 05:52 WBC 3.2 L RBC 4.39 Hgb 13.6 Hct 41.1 MCV 93.5 MCH 30.8 MCHC 33.0 RDW 15.7 H Plt Count 123 L MPV 8.1 Absolute Neuts (auto) 1.6 Neutrophils % 48.9 Lymphocytes % 36.0 D Monocytes % 14.1 H Eosinophils % 0.5 Basophils % 0.5 Nucleated RBC % 0 Sodium 144 Potassium 4.0 Chloride 108 H Carbon Dioxide 29 Anion Gap 7 L BUN 13.6 Creatinine 0.6 Est GFR (CKD-EPI)AfAm 97.01 Est GFR (CKD-EPI)NonAf 83.70 Random Glucose 94 Calcium 8.2 L Phosphorus 3.0 Magnesium 1.9 Total Bilirubin 0.5 AST 27 ALT 30 Alkaline Phosphatase 63 Total Protein 6.4 Albumin 3.4 Urine Color Urine Appearance Urine pH Ur Specific [place] Urine Protein Urine Glucose (UA) Urine Ketones Urine Blood Urine Nitrite Urine Bilirubin Urine Urobilinogen Ur Leukocyte Esterase Urine WBC (Auto) Urine RBC (Auto) Urine Casts (Auto) U Epithel Cells (Auto) Urine Bacteria (Auto) COVID-19 PCR COVID-19 (AYANNA) Home Medications Medication Instructions Recorded Aspirin Coated [Ecotrin -] 81 mg PO DAILY #30 tablet.ec 07/19/19 Losartan Potassium [Cozaar] 100 mg PO DAILY #14 tablet 07/19/19 Rosuvastatin Calcium [Crestor] 10 mg PO HS #14 tablet 07/19/19 Amitriptyline HCl 25 mg PO HS #30 tablet 09/19/19 Ergocalciferol (Vitamin D2) 50,000 unit PO Q7D #4 capsule 09/19/19 [Vitamin D2] Mupirocin Ointment [Bactroban 2% 1 applic TP TID 10/23/19 Ointment -] Azithromycin 250 mg PO DAILY 4 Days #4 tablet 11/23/19 Mirtazapine 15 mg PO DAILY 11/23/19 ASSESSMENT/PLAN: 84 year old female with history of HTN, HLD, Osteoporosis, OA, presents with 3 day history of fever, cough, SOB, diarrhea, found to be saturating 91% on RA. CT chest - RLL ground glass opacity (chronic finding) Low probability COVID 19 COVID 19 pending - for out-patient follow up. Afebrile, Hemodynamically Stable. Azithromycin as per ID. Counselled regarding self-quarantine and social distancing pending COVID 19 result. Medically optimized for discharge. Visit type - Emergency Visit Emergency Visit: Yes ED Registration Date: 11/22/19 Care time: The patient presented to the Emergency Department on the above date and was hospitalized for further evaluation of their emergent condition. - New Patient This patient is new to me today: Yes Date on this admission: 11/23/19 - Critical Care Critical Care patient: No
[2019-11-23] MEDS ORDERED: ROSUVASTATIN CA 10 MG TABLET (FP) PO SCH (22:00)
== END 2019-11-23 16:40 | disposition home or self-care (01) | DRG 206 ==
LOC: JER 13:34 → JERBED 19:00
PROVIDERS: ADMIT Internal Medicine
DX: R09.02 Hypoxemia (principal); R06.02 Shortness of breath; J06.9 Acute upper respiratory infection, unspecified; I10 Essential (primary) hypertension; E78.5 Hyperlipidemia, unspecified; M81.0 Age-related osteoporosis without current pathological fracture; M19.90 Unspecified osteoarthritis, unspecified site; Z20.828 Contact with and (suspected) exposure to other viral communicable diseases
CPT/HCPCS: 36415; 71045-TC-FY; 71250-TC; 80053; 81003; 82550; 82728; 82803; 83605; 83615; 83735; 83880; 84100; 84484; 85025; 85610; 87040; 87086; 87633; 87804; 87807; 93005; 93010; 99285-25; J0131; J7030; U0001; U0002

== ENCOUNTER 2020-10-02 14:45 | Emergency (ER) | payer OTHER ==
[2020-10-02 15:25] VITALS: BMI 35.6
[2020-10-02] MEDS ORDERED: SODIUM CHLORIDE 0.9% 500 ML INFUS.BAG IV ONE (16:40)
[2020-10-02] MEDS ORDERED: ACETAMINOPHEN 1000 MG/100 ML VIAL (NON FORMULARY) IVPB ONE (16:41)
[2020-10-02] MEDS ORDERED: ACETAMINOPHEN INJECTION 100 ML IVPB ONE (17:12)
[2020-10-02 17:30] LABS: BASO % 0.5 % (0-2.0); EOS % 1.6 % (0-4.5); HEMATOCRIT 41.4 % (32.4-45.2); HEMOGLOBIN 13.7 GM/dL (10.7-15.3); MCH 30.9 pg (25.7-33.7); MCHC 33.2 g/dl (32.0-36.0); MEAN PLT VOLUME 7.4 fl (7.5-11.1); MONO % 5.8 % (3.8-10.2); NEUT % 75.1 % (42.8-82.8); PLATELET COUNT 251 K/MM3 (134-434); RBC 4.46 M/mm3 (3.60-5.2); RDW 15.3 % (11.6-15.6); WHITE BLOOD COUNT 8.9 K/mm3 (4.0-10.0)
[2020-10-02 17:49] LABS: CHLORIDE 107 mmol/L (98-107); POTASSIUM 4.2 mmol/L (3.5-5.1); SODIUM 143 mmol/L (136-145)
[2020-10-02 17:50] LABS: CALCIUM 9.6 mg/dL (8.5-10.1)
[2020-10-02 17:51] LABS: ALBUMIN 3.6 g/dl (3.4-5.0); ANION GAP 6 MMOL/L (8-16); BLOOD UREA NITROGEN 17.8 mg/dL (7-18); CO2 30 mmol/L (21-32); GLUCOSE,RANDOM 92 mg/dL (74-106)
[2020-10-02 17:54] LABS: CREATININE 0.7 mg/dL (0.55-1.3); SGOT/AST 31 U/L (15-37); SGPT/ALT 41 U/L (13-61)
[2020-10-02 17:56] LABS: BILIRUBIN,TOTAL 0.4 mg/dL (0.2-1); TOT PROT 7.1 g/dl (6.4-8.2)
[2020-10-02 17:57] LABS: ALK PHOS 140 U/L (45-117)
[2020-10-02] MEDS ORDERED: amLODIPine BESYLATE 10 MG TABLET (FP) PO ONE (18:13)
[2020-10-02] MEDS ORDERED: amLODIPine BESYLATE 5 MG TABLET (FP) ONE (18:46)
[2020-10-02 18:53] VITALS: BP 137/82; PULSE 93; TEMP 97.9
[2020-10-02 19:35] LABS: EPI CELLS 1 /uL (0-25.1); HYALINE CASTS 0 /uL (0-3.1); PH,URINE 5.5 (5.0-8.0); URINE APPEARANCE CLEAR; URINE BACTERIA 81 /uL (0-1359); URINE BILIRUBIN NEGATIVE (NEGATIVE); URINE COLOR YELLOW; URINE GLUCOSE (UA) NEGATIVE (NEGATIVE); URINE KETONE NEGATIVE (NEGATIVE); URINE LEUK ESTERASE TRACE (NEGATIVE); URINE NITRITE NEGATIVE (NEGATIVE); URINE PROTEIN TRACE (NEGATIVE); URINE RBC 8 /uL (0-23.9); URINE UROBILINOGEN 0.2 mg/dL (0.2-1.0); URINE WBC 5 /uL (0-25.8)
== END 2020-10-02 20:33 | disposition home or self-care (01) ==
LOC: JER 14:45
PROC: 3E0333Z Introduction of Anti-inflammatory into Peripheral Vein, Percutaneous Approach (ICD-10-PCS; principal; 2020-10-02)
DX: R51.9 Headache, unspecified (principal); I10 Essential (primary) hypertension; R00.0 Tachycardia, unspecified
CPT/HCPCS: 36415; 70450-TC; 71045-TC-FY; 80053; 81003; 82550; 84484; 85025; 93005; 93010; 96374; 99285-25; C9803; J0131; U0003

== ENCOUNTER 2021-07-09 14:42 | Inpatient (IN) | payer OTHER ==
[2021-07-09] MEDS ORDERED: ACETAMINOPHEN 1000 MG/100 ML VIAL IVPB ONE (15:57)
[2021-07-09] MEDS ORDERED: DIPHTH,PERTUSS(ACELL),TET 0.5 ML DISP.SYRIN IM ONE ×2 (15:57→16:08)
[2021-07-09] MEDS ORDERED: ACETAMINOPHEN INJECTION 100 ML IVPB ONE (16:08)
[2021-07-09 17:13] LABS: HEMATOCRIT 40.6 % (32.4-45.2); HEMOGLOBIN 13.4 GM/dL (10.7-15.3); MCH 30.2 pg (25.7-33.7); MCHC 32.9 g/dl (32.0-36.0); MEAN CELL VOLUME 91.7 fl (80-96); PLATELET COUNT 194 10^3/uL (134-434); RBC 4.42 M/mm3 (3.60-5.2); RDW 16.3 % (11.6-15.6); WHITE BLOOD COUNT 11.1 K/mm3 (4.0-10.0)
[2021-07-09 17:14] LABS: BASO % 0.4 % (0-2.0); EOS % 0.6 % (0-4.5); LYMPH % 12.9 % (8-40); MEAN PLT VOLUME 7.8 fl (7.5-11.1); MONO % 4.7 % (3.8-10.2); NEUT % 81.4 % (42.8-82.8)
[2021-07-09 17:29] LABS: CHLORIDE 109 mmol/L (98-107); SODIUM 143 mmol/L (136-145)
[2021-07-09 17:30] LABS: CALCIUM 8.9 mg/dL (8.5-10.1)
[2021-07-09 17:31] LABS: ALBUMIN 3.5 g/dl (3.4-5.0); ANION GAP 5 MMOL/L (8-16); BLOOD UREA NITROGEN 21.2 mg/dL (7-18); CO2 29 mmol/L (21-32); GLUCOSE,RANDOM 96 mg/dL (74-106)
[2021-07-09 17:34] LABS: CREATININE 0.6 mg/dL (0.55-1.3); SGOT/AST 40 U/L (15-37); SGPT/ALT 53 U/L (13-61)
[2021-07-09 17:36] LABS: BILIRUBIN,TOTAL 0.4 mg/dL (0.2-1); TOT PROT 6.6 g/dl (6.4-8.2)
[2021-07-09 17:37] LABS: ALK PHOS 100 U/L (45-117)
[2021-07-09] MEDS ORDERED: amLODIPine BESYLATE 5 MG TABLET (FP) PO SCH (22:00)
[2021-07-09] MEDS ORDERED: amLODIPine BESYLATE 5 MG TABLET (FP) ONE (22:00)
[2021-07-09] MEDS ORDERED: MONTELUKAST NA 10 MG TABLET ONE (22:00)
[2021-07-09] MEDS: ROSUVASTATIN CA 10 MG TABLET (FP) PO SCH (22:18)
[2021-07-09] MEDS: MONTELUKAST NA 10 MG TABLET PO SCH (22:18)
[2021-07-09 22:43] LABS: URINE APPEARANCE CLEAR; URINE BILIRUBIN NEGATIVE (NEGATIVE); URINE COLOR YELLOW; URINE GLUCOSE (UA) NEGATIVE (NEGATIVE); URINE KETONE NEGATIVE (NEGATIVE); URINE LEUK ESTERASE NEGATIVE (NEGATIVE); URINE NITRITE NEGATIVE (NEGATIVE); URINE PROTEIN NEGATIVE (NEGATIVE); URINE UROBILINOGEN 0.2 mg/dL (0.2-1.0)
[2021-07-10] MEDS ORDERED: morphine CARPU-JECT 4 MG/1 ML DISP.SYRIN IVPUSH ONE (00:33)
[2021-07-10] MEDS ORDERED: MELATONIN 5 MG TABLETS PO ONE (00:33)
[2021-07-10] MEDS ORDERED: MELATONIN 5 MG TABLETS ONE (00:43)
[2021-07-10] MEDS ORDERED: morphine SULFATE 4 MG/ML VIAL ONE ×2 (00:44→09:26)
[2021-07-10] MEDS ORDERED: ACETAMINOPHEN 1000 MG/100 ML VIAL IVPB PRN (01:43)
[2021-07-10] MEDS ORDERED: QUEtiapine FUMARATE 25 MG TABLET PO ONE (02:14)
[2021-07-10] MEDS ORDERED: QUEtiapine FUMARATE 25 MG TABLET ONE (02:15)
[2021-07-10] MEDS ORDERED: ONDANSETRON *ODT* 4 MG TABLET SL ONE (02:20)
[2021-07-10] MEDS ORDERED: ONDANSETRON *ODT* 4 MG TABLET ONE (02:21)
[2021-07-10 08:03] LABS: CHLORIDE 106 mmol/L (98-107); SODIUM 141 mmol/L (136-145)
[2021-07-10 08:06] LABS: CALCIUM 8.8 mg/dL (8.5-10.1)
[2021-07-10 08:07] LABS: ALBUMIN 3.2 g/dl (3.4-5.0); ANION GAP 2 MMOL/L (8-16); BLOOD UREA NITROGEN 24.1 mg/dL (7-18); CO2 33 mmol/L (21-32); GLUCOSE,RANDOM 110 mg/dL (74-106); MAGNESIUM 2.5 mg/dL (1.8-2.4)
[2021-07-10 08:09] LABS: SGOT/AST 62 U/L (15-37); SGPT/ALT 65 U/L (13-61)
[2021-07-10 08:10] LABS: CHOLESTEROL 115 mg/dL (50-200); CREATININE 0.7 mg/dL (0.55-1.3); PHOSPHOROUS 4.3 mg/dL (2.5-4.9); TRIGLYCERIDES 65 mg/dL (0-150)
[2021-07-10 08:11] LABS: BILIRUBIN,TOTAL 0.3 mg/dL (0.2-1); LDL CHOLESTEROL (ONLY SJRH) 49 mg/dL (5-100); TOT PROT 5.9 g/dl (6.4-8.2)
[2021-07-10 08:12] LABS: ALK PHOS 90 U/L (45-117); HDL CHOLESTEROL 52 mg/dL (40-60)
[2021-07-10 08:20] LABS: BASO % 0.8 % (0-2.0); EOS % 1.6 % (0-4.5); HEMATOCRIT 35.9 % (32.4-45.2); HEMOGLOBIN 12.2 GM/dL (10.7-15.3); LYMPH % 16.1 % (8-40); MCH 30.8 pg (25.7-33.7); MEAN CELL VOLUME 90.7 fl (80-96); MEAN PLT VOLUME 7.8 fl (7.5-11.1); NEUT % 75.5 % (42.8-82.8); PLATELET COUNT 173 10^3/uL (134-434); RBC 3.96 M/mm3 (3.60-5.2); RDW 15.7 % (11.6-15.6); WHITE BLOOD COUNT 7.4 K/mm3 (4.0-10.0)
[2021-07-10] MEDS ORDERED: LOSARTAN POTASSIUM 50 MG TABLET ONE (09:04)
[2021-07-10] MEDS ORDERED: ENOXAPARIN NA (PORCINE) 40 MG/0.4 ML DISP.SYRIN SQ ONE (09:05)
[2021-07-10] MEDS: morphine SULFATE 4 MG/ML VIAL IVPUSH PRN (09:30)
[2021-07-10] MEDS: ENOXAPARIN NA (PORCINE) 40 MG/0.4 ML DISP.SYRIN SQ SCH (09:56)
[2021-07-10] MEDS ORDERED: LOSARTAN POTASSIUM 50 MG TABLET PO SCH (10:00)
[2021-07-10] MEDS ORDERED: ACETAMINOPHEN INJECTION 100 ML IVPB ONE (16:06)
[2021-07-10] MEDS: ROSUVASTATIN CA 10 MG TABLET (FP) PO SCH (22:15)
[2021-07-10] MEDS: MONTELUKAST NA 10 MG TABLET PO SCH (22:15)
[2021-07-10] MEDS: amLODIPine BESYLATE 5 MG TABLET (FP) PO SCH (22:15)
[2021-07-11 07:40] LABS: ALBUMIN 3.1 g/dl (3.4-5.0); BLOOD UREA NITROGEN 25.5 mg/dL (7-18); MAGNESIUM 2.5 mg/dL (1.8-2.4)
[2021-07-11 07:43] LABS: CREATININE 0.6 mg/dL (0.55-1.3); PHOSPHOROUS 4.2 mg/dL (2.5-4.9)
[2021-07-11 07:44] LABS: BILIRUBIN,TOTAL 0.3 mg/dL (0.2-1); TOT PROT 5.9 g/dl (6.4-8.2)
[2021-07-11 08:14] LABS: HEMATOCRIT 41.3 % (32.4-45.2); HEMOGLOBIN 13.5 GM/dL (10.7-15.3); MCH 30.8 pg (25.7-33.7); MCHC 32.6 g/dl (32.0-36.0); MEAN CELL VOLUME 94.6 fl (80-96); MEAN PLT VOLUME 9.3 fl (7.5-11.1); PLATELET COUNT 100 10^3/uL (134-434); RBC 4.37 M/mm3 (3.60-5.2); RDW 16.4 % (11.6-15.6); WHITE BLOOD COUNT 6.7 K/mm3 (4.0-10.0)
[2021-07-11] MEDS: FUROSEMIDE 20 MG TABLET (FP) PO SCH (09:23)
[2021-07-11] MEDS: LOSARTAN POTASSIUM 50 MG TABLET PO SCH (09:23)
[2021-07-11] MEDS: ENOXAPARIN NA (PORCINE) 40 MG/0.4 ML DISP.SYRIN SQ SCH (09:23)
[2021-07-11] MEDS ORDERED: FUROSEMIDE 20 MG TABLET (FP) PO SCH (10:00)
[2021-07-11] MEDS: morphine SULFATE 4 MG/ML VIAL IVPUSH PRN (21:50)
[2021-07-11] MEDS: amLODIPine BESYLATE 5 MG TABLET (FP) PO SCH (21:57)
[2021-07-11] MEDS: ROSUVASTATIN CA 10 MG TABLET (FP) PO SCH (21:57)
[2021-07-11] MEDS: MONTELUKAST NA 10 MG TABLET PO SCH (21:57)
[2021-07-12 08:11] LABS: HEMATOCRIT 37.7 % (32.4-45.2); HEMOGLOBIN 12.5 GM/dL (10.7-15.3); MCHC 33.1 g/dl (32.0-36.0); MEAN CELL VOLUME 93.4 fl (80-96); MEAN PLT VOLUME 8.2 fl (7.5-11.1); PLATELET COUNT 167 10^3/uL (134-434); RBC 4.04 M/mm3 (3.60-5.2); RDW 16.1 % (11.6-15.6)
[2021-07-12 08:40] LABS: BLOOD UREA NITROGEN 24.5 mg/dL (7-18); CALCIUM 8.7 mg/dL (8.5-10.1)
[2021-07-12 08:44] LABS: CREATININE 0.6 mg/dL (0.55-1.3)
[2021-07-12] MEDS: LOSARTAN POTASSIUM 50 MG TABLET PO SCH (11:07)
[2021-07-12] MEDS: FUROSEMIDE 20 MG TABLET (FP) PO SCH (11:07)
[2021-07-12] MEDS ORDERED: ACETAMINOPHEN 325 MG TABLET (FP) PO PRN (13:50)
[2021-07-12] MEDS: MONTELUKAST NA 10 MG TABLET PO SCH (21:38)
[2021-07-12] MEDS: ROSUVASTATIN CA 10 MG TABLET (FP) PO SCH (21:38)
[2021-07-12] MEDS: amLODIPine BESYLATE 5 MG TABLET (FP) PO SCH (21:38)
[2021-07-13 07:11] LABS: HEMATOCRIT 40.7 % (32.4-45.2); HEMOGLOBIN 13.6 GM/dL (10.7-15.3); MCHC 33.3 g/dl (32.0-36.0); MEAN CELL VOLUME 93.1 fl (80-96); MEAN PLT VOLUME 8.3 fl (7.5-11.1); PLATELET COUNT 168 10^3/uL (134-434); RBC 4.38 M/mm3 (3.60-5.2); RDW 15.8 % (11.6-15.6)
[2021-07-13 07:34] LABS: CALCIUM 8.6 mg/dL (8.5-10.1)
[2021-07-13 07:35] LABS: BLOOD UREA NITROGEN 23.1 mg/dL (7-18)
[2021-07-13 07:38] LABS: CREATININE 0.6 mg/dL (0.55-1.3)
[2021-07-13] MEDS: FUROSEMIDE 20 MG TABLET (FP) PO SCH (09:06)
[2021-07-13] MEDS: LOSARTAN POTASSIUM 50 MG TABLET PO SCH (09:06)
[2021-07-13 14:29] VITALS: BMI 49.9
[2021-07-13 14:39] VITALS: BP 146/60; PULSE 95; TEMP 98.7
== END 2021-07-13 17:30 | disposition home or self-care (01) | DRG 563 ==
LOC: JER 14:42 → JERBED 19:44 → OBSVTOIN 23:54 → J4S 07-10 19:28
PROVIDERS: ADMIT Internal Medicine; ATTEND Internal Medicine
DX: S52.121A Displaced fracture of head of right radius, initial encounter for closed fracture (principal); Z68.43 Body mass index [BMI] 50.0-59.9, adult; I10 Essential (primary) hypertension; E78.5 Hyperlipidemia, unspecified; M81.0 Age-related osteoporosis without current pathological fracture; Z86.16 Personal history of COVID-19; E66.9 Obesity, unspecified; W01.0XXA Fall on same level from slipping, tripping and stumbling without subsequent striking against object, initial encounter; Y93.89 Activity, other specified; Y92.89 Other specified places as the place of occurrence of the external cause; Y99.8 Other external cause status; E05.90 Thyrotoxicosis, unspecified without thyrotoxic crisis or storm; D69.6 Thrombocytopenia, unspecified
CPT/HCPCS: 36415; 70450-TC; 71045-TC-FY; 72125-TC; 73060-TC-RT-FY; 73070-TC-RT-FY; 73090-TC-RT-FY; 73564-TC-RT-FY; 80048; 80053; 80061; 81003; 82550; 83735; 84100; 84439; 84443; 84484; 85025; 85027; 90715; 93005; 93010; 93306-TC; 93880-TC; 97116-GP; 97161-GP; 99285-25; C9803; G0378; J0131; Q0162; U0003; U0005

== ENCOUNTER 2022-09-28 13:32 | Observation (INO) | payer OTHER ==
[2022-09-28] MEDS ORDERED: ACETAMINOPHEN 325 MG TABLET (FP) PO ONE (14:39)
[2022-09-28 15:04] VITALS: BMI 34.2
[2022-09-28] MEDS ORDERED: ACETAMINOPHEN 325 MG TABLET (FP) ONE (15:09)
[2022-09-28 17:07] LABS: BASO % 0.3 % (0-2.0); EOS % 0.8 % (0-4.5); HEMATOCRIT 41.8 % (32.4-45.2); HEMOGLOBIN 13.5 GM/dL (10.7-15.3); LYMPH % 8.5 % (8-40); MCH 30.5 pg (25.7-33.7); MCHC 32.3 g/dl (32.0-36.0); MEAN CELL VOLUME 94.4 fl (80-96); MONO % 7.5 % (3.8-10.2); NEUT % 82.9 % (42.8-82.8); PLATELET COUNT 232 10^3/uL (134-434); RBC 4.42 M/mm3 (3.60-5.2); RDW 15.3 % (11.6-15.6); WHITE BLOOD COUNT 12.1 K/mm3 (4.0-10.0)
[2022-09-28 17:38] LABS: CALCIUM 9.1 mg/dL (8.5-10.1)
[2022-09-28 17:39] LABS: ALBUMIN 3.4 g/dl (3.4-5.0); BLOOD UREA NITROGEN 26.8 mg/dL (7-18)
[2022-09-28 17:42] LABS: CREATININE 0.6 mg/dL (0.55-1.3)
[2022-09-28 17:43] LABS: BILIRUBIN,TOTAL 0.4 mg/dL (0.2-1)
[2022-09-28 17:44] LABS: TOT PROT 6.4 g/dl (6.4-8.2)
[2022-09-28 17:47] LABS: N-TERMINAL BNP 84.7 pg/ml (5-450)
[2022-09-28] MEDS ORDERED: PIPERACILLIN/TAZOB 3.375 GM 3.375 GM in DEXTROSE 5%-WATER - 50 ML IVPB ONE (17:52)
[2022-09-28] MEDS ORDERED: VANCOMYCIN 1 GM in D5W (PRE-DOCKED) 1,000 MG/250 ML IVPB ONE (17:52)
[2022-09-28] MEDS ORDERED: PIPERACILLIN/TAZOB 3.375 GM 3.375 GM/50 ML BAG IVPB ONE (18:24)
[2022-09-28] MEDS ORDERED: VANCOMYCIN/WATER FOR INJ (PEG) 1,000 MG/200 ML BAG IVPB ONE (18:24)
[2022-09-28 20:29] LABS: ERYTHROCYTE SEDIMENTATION RATE 24 mm/hr (0-30)
[2022-09-28 22:20] LABS: URINE APPEARANCE CLEAR; URINE BILIRUBIN NEGATIVE (NEGATIVE); URINE COLOR YELLOW; URINE GLUCOSE (UA) NEGATIVE (NEGATIVE); URINE KETONE NEGATIVE (NEGATIVE); URINE LEUK ESTERASE NEGATIVE (NEGATIVE); URINE NITRITE NEGATIVE (NEGATIVE); URINE PROTEIN NEGATIVE (NEGATIVE)
[2022-09-28 22:21] LABS: URIC ACID 3.2 mg/dL (2.6-7.2)
[2022-09-29] MEDS ORDERED: FUROSEMIDE 40 MG/4 ML INJECTABLE VIAL IVPUSH ONE (00:40)
[2022-09-29] MEDS ORDERED: ACETAMINOPHEN 1000 MG/100 ML BAG IVPB PRN (02:49)
[2022-09-29] MEDS: PIPERACILLIN/TAZOB 3.375 GM 3.375 GM in DEXTROSE 5%-WATER - 50 ML IVPB SCH ×2 (03:33→10:41)
[2022-09-29] MEDS ORDERED: HEPARIN NA (PORCINE) 5,000 UNITS/ML 1ML VIAL SQ SCH (06:00)
[2022-09-29] MEDS ORDERED: PATIENT'S OWN MEDICATION (NON-FORMULARY) (Mirabegron [Myrbetriq] 50 MG Tab.Er.24h) PO SCH (10:00)
[2022-09-29] MEDS: ENOXAPARIN NA (PORCINE) 40 MG/0.4 ML DISP.SYRIN SQ SCH (10:41)
[2022-09-29 12:05] LABS: BASO % 0.3 % (0-2.0); EOS % 1.2 % (0-4.5); HEMATOCRIT 42.4 % (32.4-45.2); LYMPH % 12.8 % (8-40); MCH 31.1 pg (25.7-33.7); MCHC 33.1 g/dl (32.0-36.0); MEAN CELL VOLUME 94.2 fl (80-96); MEAN PLT VOLUME 7.6 fl (7.5-11.1); MONO % 7.2 % (3.8-10.2); NEUT % 78.5 % (42.8-82.8); PLATELET COUNT 243 10^3/uL (134-434); RDW 15.1 % (11.6-15.6); WHITE BLOOD COUNT 10.4 K/mm3 (4.0-10.0)
[2022-09-29 12:34] LABS: ALBUMIN 3.4 g/dl (3.4-5.0); CALCIUM 9.2 mg/dL (8.5-10.1); MAGNESIUM 2.1 mg/dL (1.8-2.4)
[2022-09-29 12:37] LABS: CREATININE 0.8 mg/dL (0.55-1.3); PHOSPHOROUS 3.6 mg/dL (2.5-4.9)
[2022-09-29 12:38] LABS: BILIRUBIN,TOTAL 0.8 mg/dL (0.2-1); TOT PROT 6.9 g/dl (6.4-8.2)
[2022-09-29 12:41] LABS: ERYTHROCYTE SEDIMENTATION RATE 40 mm/hr (0-30)
[2022-09-29] MEDS ORDERED: IBUPROFEN 600 MG TABLET (FP) PO PRN (14:41)
[2022-09-29] MEDS ORDERED: VANCOMYCIN 1 GM/200 ML PREMIX BAG (RESTRICTED TO ID ONLY) IVPB SCH (18:00)
[2022-09-29] MEDS ORDERED: MONTELUKAST NA 10 MG TABLET PO SCH (22:00)
[2022-09-29] MEDS ORDERED: amLODIPine BESYLATE 5 MG TABLET (FP) PO SCH (22:00)
[2022-09-29] MEDS ORDERED: ATORVASTATIN CA 80 MG TABLET (FP) PO SCH (22:00)
[2022-09-30] MEDS ORDERED: PIPERACILLIN/TAZOB 3.375 GM 3.375 GM in DEXTROSE 5%-WATER - 50 ML IVPB SCH (02:00)
[2022-09-30 08:53] LABS: HEMATOCRIT 42.1 % (32.4-45.2); HEMOGLOBIN 13.8 GM/dL (10.7-15.3); MCH 31.1 pg (25.7-33.7); MCHC 32.8 g/dl (32.0-36.0); MEAN CELL VOLUME 94.7 fl (80-96); MEAN PLT VOLUME 7.9 fl (7.5-11.1); PLATELET COUNT 266 10^3/uL (134-434); RBC 4.45 M/mm3 (3.60-5.2); RDW 15.1 % (11.6-15.6); WHITE BLOOD COUNT 9.1 K/mm3 (4.0-10.0)
[2022-09-30 08:55] VITALS: BP 123/74; PULSE 93; RESP 20; TEMP 97.7
[2022-09-30] MEDS: ENOXAPARIN NA (PORCINE) 40 MG/0.4 ML DISP.SYRIN SQ SCH (09:15)
[2022-09-30] MEDS ORDERED: VANCOMYCIN 1 GM/200 ML PREMIX BAG (RESTRICTED TO ID ONLY) IVPB SCH (18:00)
== END 2022-09-30 15:57 | disposition home or self-care (01) ==
LOC: JER 13:32 → JERBED 18:17 → INTOOBSV 18:17 → UNDOADMOB 18:17 → J6S 09-29 01:24 → JERBED 09-29 01:24 → J6S 09-29 09:13
PROVIDERS: ADMIT Internal Medicine; ATTEND Internal Medicine
PROC: 3E033NZ Introduction of Analgesics, Hypnotics, Sedatives into Peripheral Vein, Percutaneous Approach (ICD-10-PCS; principal; 2022-09-29)
PROC: 3E023GC Introduction of Other Therapeutic Substance into Muscle, Percutaneous Approach (ICD-10-PCS; 2022-09-29)
PROC: 3E03329 Introduction of Other Anti-infective into Peripheral Vein, Percutaneous Approach (ICD-10-PCS; 2022-09-29)
DX: I10 Essential (primary) hypertension (principal); E78.5 Hyperlipidemia, unspecified; R26.2 Difficulty in walking, not elsewhere classified; E11.9 Type 2 diabetes mellitus without complications; M19.90 Unspecified osteoarthritis, unspecified site; Z91.013 Allergy to seafood; R60.0 Localized edema; Z91.041 Radiographic dye allergy status
CPT/HCPCS: 0241U-QW; 36415; 71045-TC-FY; 73610-TC-LT-FY; 73630-TC-LT; 80053; 81003; 83735; 83880; 84100; 84443; 84484; 84550; 85025; 85027; 85651; 86140; 87086; 93005; 93010; 93306-TC; 93970-TC; 96365; 96367; 96372; 96375; 97116-GP; 97162-GP; 99285-25; G0378

== ENCOUNTER 2023-06-01 09:44 | Emergency (ER) | payer OTHER ==
[2023-06-01 09:53] VITALS: RESP 18; BMI 31.2
[2023-06-01] MEDS ORDERED: BACITRACIN ZINC 15 GM TUBE TOPICAL OINTMENT TP ONE (10:44)
[2023-06-01] MEDS ORDERED: BACITRACIN ZINC 15 GM TUBE TOPICAL OINTMENT ONE (10:48)
[2023-06-01 11:12] VITALS: BP 145/63; PULSE 74; TEMP 97.8
== END 2023-06-01 11:30 | disposition home or self-care (01) ==
LOC: JER 09:44
DX: S81.801A Unspecified open wound, right lower leg, initial encounter (principal); L97.911 Non-pressure chronic ulcer of unspecified part of right lower leg limited to breakdown of skin; I89.0 Lymphedema, not elsewhere classified; W19.XXXA Unspecified fall, initial encounter
CPT/HCPCS: 99283-25

== ENCOUNTER 2023-06-13 10:29 | Emergency (ER) | payer OTHER ==
[2023-06-13 11:27] VITALS: BP 136/62; PULSE 78; RESP 18; TEMP 97.6; BMI 31.8
[2023-06-13] MEDS ORDERED: ACETAMINOPHEN 1000 MG/100 ML BAG IVPB ONE (11:57)
[2023-06-13] MEDS ORDERED: SODIUM CHLORIDE 0.9% 500 ML INFUS.BAG IV ONE (11:57)
[2023-06-13] MEDS ORDERED: MAG HYDROX/AL HYDROX/SIMETH 30 ML UNIT-DOSE CUP PO ONE (11:57)
[2023-06-13] MEDS ORDERED: FAMOTIDINE 20 MG/50 ML IVPB 20 MG/50 ML MG IVPB ONE ×2 (11:57→12:57)
[2023-06-13] MEDS ORDERED: ACETAMINOPHEN INJECTION 100 ML IVPB ONE (12:56)
[2023-06-13] MEDS ORDERED: MAG HYDROX/AL HYDROX/SIMETH 30 ML UNIT-DOSE CUP ONE (12:57)
[2023-06-13 14:29] LABS: EOS % 2.1 % (0-4.5); HEMATOCRIT 39.8 % (32.4-45.2); HEMOGLOBIN 13.5 GM/dL (10.7-15.3); LYMPH % 12.3 % (8-40); MCH 30.6 pg (25.7-33.7); MEAN CELL VOLUME 90.1 fl (80-96); MEAN PLT VOLUME 7.3 fl (7.5-11.1); NEUT % 78.6 % (42.8-82.8); PLATELET COUNT 300 10^3/uL (134-434); RBC 4.42 M/mm3 (3.60-5.2); RDW 15.4 % (11.6-15.6); WHITE BLOOD COUNT 9.6 K/mm3 (4.0-10.0)
[2023-06-13 14:44] LABS: POTASSIUM 4.5 mmol/L (3.5-5.1)
[2023-06-13 14:46] LABS: ALBUMIN 3.3 g/dl (3.4-5.0); CALCIUM 9.1 mg/dL (8.5-10.1)
[2023-06-13 14:47] LABS: BLOOD UREA NITROGEN 16.1 mg/dL (7-18)
[2023-06-13 14:49] LABS: CREATININE 0.5 mg/dL (0.55-1.3)
[2023-06-13 14:51] LABS: BILIRUBIN,TOTAL 0.6 mg/dL (0.2-1); TOT PROT 6.9 g/dl (6.4-8.2)
[2023-06-13 19:37] LABS: EPI CELLS 3 /uL (0-25.1); HYALINE CASTS 0 /uL (0-3.1); PH,URINE 5.5 (5.0-8.0); URINE APPEARANCE CLEAR; URINE BACTERIA 3170 /uL (0-1359); URINE BILIRUBIN NEGATIVE (NEGATIVE); URINE COLOR YELLOW; URINE GLUCOSE (UA) NEGATIVE (NEGATIVE); URINE KETONE 1+ (NEGATIVE); URINE LEUK ESTERASE TRACE (NEGATIVE); URINE NITRITE NEGATIVE (NEGATIVE); URINE PROTEIN NEGATIVE (NEGATIVE); URINE RBC 9 /uL (0-23.9); URINE UROBILINOGEN 0.2 mg/dL (0.2-1.0); URINE WBC 41 /uL (0-25.8)
[2023-06-13] MEDS ORDERED: CEPHALEXIN MONOHYDRATE 500 MG CAPSULE (UD) PO ONE (19:44)
[2023-06-13] MEDS ORDERED: CEPHALEXIN MONOHYDRATE 500 MG CAPSULE (UD) ONE (21:23)
== END 2023-06-13 21:53 | disposition home or self-care (01) ==
LOC: JER 10:29
PROC: 3E033GC Introduction of Other Therapeutic Substance into Peripheral Vein, Percutaneous Approach (ICD-10-PCS; principal; 2023-06-13)
PROC: 3E033NZ Introduction of Analgesics, Hypnotics, Sedatives into Peripheral Vein, Percutaneous Approach (ICD-10-PCS; 2023-06-13)
DX: R10.30 Lower abdominal pain, unspecified (principal); N93.9 Abnormal uterine and vaginal bleeding, unspecified; N39.0 Urinary tract infection, site not specified
CPT/HCPCS: 36415; 71045-TC-FY; 72170-TC-FY; 76856-TC; 80053; 81003; 83735; 84484; 85025; 87086; 93005; 93010; 96365; 96375; 99285-25

== ENCOUNTER 2023-11-01 09:38 | Emergency (ER) | payer OTHER ==
[2023-11-01 09:49] VITALS: BMI 26.4
[2023-11-01 11:46] LABS: HEMATOCRIT 39.8 % (32.4-45.2); HEMOGLOBIN 13.4 GM/dL (10.7-15.3); MCH 30.2 pg (25.7-33.7); MCHC 33.6 g/dl (32.0-36.0); MEAN CELL VOLUME 89.9 fl (80-96); MEAN PLT VOLUME 7.6 fl (7.5-11.1); PLATELET COUNT 195 10^3/uL (134-434); RBC 4.43 M/mm3 (3.60-5.2); RDW 15.6 % (11.6-15.6); WHITE BLOOD COUNT 9.2 K/mm3 (4.0-10.0)
[2023-11-01 11:49] LABS: EPI CELLS 2 /uL (0-25.1); HYALINE CASTS 1 /uL (0-3.1); PH,URINE 6.5 (5.0-8.0); URINE APPEARANCE CLOUDY; URINE BACTERIA 5228 /uL (0-1359); URINE BILIRUBIN NEGATIVE (NEGATIVE); URINE COLOR YELLOW; URINE GLUCOSE (UA) NEGATIVE (NEGATIVE); URINE KETONE NEGATIVE (NEGATIVE); URINE LEUK ESTERASE 3+ (NEGATIVE); URINE NITRITE NEGATIVE (NEGATIVE); URINE PROTEIN 1+ (NEGATIVE); URINE RBC 742 /uL (0-23.9); URINE UROBILINOGEN 0.2 mg/dL (0.2-1.0); URINE WBC 3878 /uL (0-25.8)
[2023-11-01 12:25] LABS: ALBUMIN 3.4 g/dl (3.4-5.0); BLOOD UREA NITROGEN 15.6 mg/dL (7-18); CALCIUM 9.2 mg/dL (8.5-10.1)
[2023-11-01 12:28] LABS: CREATININE 0.6 mg/dL (0.55-1.3)
[2023-11-01 12:30] LABS: BILIRUBIN,TOTAL 0.6 mg/dL (0.2-1); TOT PROT 6.3 g/dl (6.4-8.2)
[2023-11-01] MEDS ORDERED: CEFTRIAXONE 1 GM/50 ML BAG ONE (13:16)
[2023-11-01 15:58] VITALS: BP 139/56; PULSE 72; RESP 15; TEMP 98.4
== END 2023-11-01 15:59 | disposition home or self-care (01) ==
LOC: JER 09:38
PROC: 3E033NZ Introduction of Analgesics, Hypnotics, Sedatives into Peripheral Vein, Percutaneous Approach (ICD-10-PCS; principal; 2023-11-01)
DX: R30.0 Dysuria (principal); R10.30 Lower abdominal pain, unspecified; N39.0 Urinary tract infection, site not specified
CPT/HCPCS: 36415; 74176-TC; 80053; 81003; 83605; 83690; 85027; 87086; 87186; 99284-25

== ENCOUNTER 2024-01-11 10:03 | Emergency (ER) | payer OTHER ==
[2024-01-11 10:26] VITALS: TEMP 98.8; BMI 31.2
[2024-01-11] MEDS ORDERED: ACETAMINOPHEN INJECTION 100 ML IVPB ONE ×2 (11:28→11:49)
[2024-01-11] MEDS: ACETAMINOPHEN 1000 MG/100 ML BAG IVPB ONE (11:34)
[2024-01-11] MEDS ORDERED: METOCLOPRAMIDE HCL INJECTION 10 MG/2 ML VIAL ONE (11:49)
[2024-01-11] MEDS: METOCLOPRAMIDE HCL INJECTION 10 MG/2 ML VIAL IVPUSH ONE (12:04)
[2024-01-11 12:19] LABS: EOS % 1.8 % (0-4.5); HEMATOCRIT 38.3 % (32.4-45.2); HEMOGLOBIN 13.1 GM/dL (10.7-15.3); LYMPH % 20.1 % (8-40); MCHC 34.3 g/dl (32.0-36.0); MEAN CELL VOLUME 90.4 fl (80-96); MEAN PLT VOLUME 7.4 fl (7.5-11.1); MONO % 6.4 % (3.8-10.2); NEUT % 70.7 % (42.8-82.8); PLATELET COUNT 189 10^3/uL (134-434); RBC 4.24 M/mm3 (3.60-5.2); RDW 15.9 % (11.6-15.6); WHITE BLOOD COUNT 6.6 K/mm3 (4.0-10.0)
[2024-01-11 12:34] LABS: POTASSIUM 3.9 mmol/L (3.5-5.1)
[2024-01-11 12:36] LABS: ALBUMIN 3.5 g/dl (3.4-5.0); BLOOD UREA NITROGEN 12.5 mg/dL (7-18); CALCIUM 9.2 mg/dL (8.5-10.1)
[2024-01-11 12:39] LABS: CREATININE 0.6 mg/dL (0.55-1.3)
[2024-01-11 12:41] LABS: TOT PROT 6.1 g/dl (6.4-8.2)
[2024-01-11 12:49] LABS: BILIRUBIN,TOTAL 0.7 mg/dL (0.2-1)
[2024-01-11 12:55] LABS: EPI CELLS 21 /uL (0-25.1); HYALINE CASTS 1 /uL (0-3.1); PH,URINE 5.5 (5.0-8.0); URINE APPEARANCE CLEAR; URINE BACTERIA 55 /uL (0-1359); URINE BILIRUBIN NEGATIVE (NEGATIVE); URINE COLOR YELLOW; URINE GLUCOSE (UA) NEGATIVE (NEGATIVE); URINE KETONE NEGATIVE (NEGATIVE); URINE LEUK ESTERASE 2+ (NEGATIVE); URINE NITRITE NEGATIVE (NEGATIVE); URINE PROTEIN NEGATIVE (NEGATIVE); URINE RBC 13 /uL (0-23.9); URINE UROBILINOGEN 0.2 mg/dL (0.2-1.0); URINE WBC 184 /uL (0-25.8)
[2024-01-11 13:01] LABS: ERYTHROCYTE SEDIMENTATION RATE 14 mm/hr (0-30)
[2024-01-11] MEDS: CEFTRIAXONE 1 GM in DEXTROSE 5%-WATER - 100 ML IVPB ONE (14:18)
[2024-01-11] MEDS: KETOROLAC TROMETHAMINE 15 MG/ML VIAL IVPUSH ONE (14:24)
[2024-01-11 14:43] VITALS: BP 132/55; PULSE 65; RESP 18
== END 2024-01-11 15:39 | disposition home or self-care (01) ==
LOC: JER 10:03
PROC: 3E03329 Introduction of Other Anti-infective into Peripheral Vein, Percutaneous Approach (ICD-10-PCS; principal; 2024-01-11)
PROC: 3E030NZ Introduction of Analgesics, Hypnotics, Sedatives into Peripheral Vein, Open Approach (ICD-10-PCS; 2024-01-11)
PROC: 3E0303Z Introduction of Anti-inflammatory into Peripheral Vein, Open Approach (ICD-10-PCS; 2024-01-11)
PROC: 3E030GC Introduction of Other Therapeutic Substance into Peripheral Vein, Open Approach (ICD-10-PCS; 2024-01-11)
DX: N39.0 Urinary tract infection, site not specified (principal); R51.9 Headache, unspecified; R42 Dizziness and giddiness; R11.0 Nausea
CPT/HCPCS: 36415; 70450-TC; 71045-TC-FY; 73502-TC-RT-FY; 73562-TC-RT-FY; 73590-TC-RT-FY; 80053; 81003; 85025; 85651; 86140; 87086; 93005; 93010; 99285-25; J0131

== ENCOUNTER 2024-09-13 04:54 | Day surgery (SDC) | payer OTHER ==
[2024-09-11 11:34] VITALS: BMI 30.9
[2024-09-13 09:10] VITALS: TEMP 98
[2024-09-13 12:38] VITALS: BP 134/54; PULSE 79; RESP 19
== END 2024-09-13 11:18 | disposition home or self-care (01) ==
LOC: JASU-ENDO 04:54
PROVIDERS: ATTEND Internal Medicine Gastroenterology
PROC: 0DJ08ZZ Inspection of Upper Intestinal Tract, Via Natural or Artificial Opening Endoscopic (ICD-10-PCS; 2024-09-13)
PROC: 0DBH8ZX Excision of Cecum, Via Natural or Artificial Opening Endoscopic, Diagnostic (ICD-10-PCS; principal; 2024-09-13 09:00)
DX: D12.0 Benign neoplasm of cecum (principal); I10 Essential (primary) hypertension
CPT/HCPCS: 88305-TC

== ENCOUNTER 2025-05-29 12:38 | Emergency (ER) | payer OTHER ==
[2025-05-29 13:09] VITALS: TEMP 98; BMI 31.3
[2025-05-29] MEDS ORDERED: BENZONATATE 200 MG CAPSULE PO ONE (13:59)
[2025-05-29 14:02] LABS: URINE APPEARANCE Turbid; URINE BILIRUBIN Negative (NEGATIVE); URINE COLOR Yellow; URINE GLUCOSE (UA) Negative (NEGATIVE); URINE KETONE Negative (NEGATIVE); URINE LEUK ESTERASE 1+ (NEGATIVE); URINE NITRITE Positive (NEGATIVE); URINE PROTEIN Negative (NEGATIVE); URINE UROBILINOGEN 0.2 mg/dL (0.2-1.0)
[2025-05-29] MEDS: BENZONATATE 200 MG CAPSULE PO ONE (14:11)
[2025-05-29] MEDS ORDERED: SULFAMETHOXAZOLE/TRIMETHOPRIM 800MG/160MG D.S. TABLET ONE (15:08)
[2025-05-29] MEDS ORDERED: PHENAZOPYRIDINE HCL 100 MG TABLET (FP) ONE (15:08)
[2025-05-29 15:17] VITALS: BP 183/78; PULSE 79; RESP 18
[2025-05-29] MEDS: SULFAMETHOXAZOLE/TRIMETHOPRIM 800MG/160MG D.S. TABLET PO ONE (15:17)
[2025-05-29] MEDS: PHENAZOPYRIDINE HCL 100 MG TABLET (FP) PO ONE (15:17)
[2025-05-29] MEDS ORDERED: amLODIPine BESYLATE 5 MG TABLET (FP) ONE (15:31)
[2025-05-29] MEDS: amLODIPine BESYLATE 5 MG TABLET (FP) PO ONE (15:35)
== END 2025-05-29 15:39 | disposition home or self-care (01) ==
LOC: JER 12:38
DX: N39.0 Urinary tract infection, site not specified (principal); R05.9 Cough, unspecified; R06.02 Shortness of breath; G47.00 Insomnia, unspecified; R30.0 Dysuria; R36.9 Urethral discharge, unspecified; G43.709 Chronic migraine without aura, not intractable, without status migrainosus
CPT/HCPCS: 81003; 87086; 99283-25